=== PATIENT | female | born 1955 | race Caucasian/White ===

== ENCOUNTER 2017-06-04 07:24 | Inpatient (IN) | payer OTHER ==
--- NOTE | 2017-05-25 21:13 | HP ---
HISTORY AND PHYSICAL: DATE OF ADMISSION/SURGERY: 06/04/17 DATE OF OFFICE VISIT: 05/25/17 SURGEON: Soraya Dumont MD * (DICTATED BY HIEU MENCHACA) PROCEDURE: Right total hip arthroplasty. CHIEF COMPLAINT: Right hip pain. HISTORY OF PRESENT ILLNESS: Ms. Marie is a 62-year-old female with complaints of right hip pain secondary to end-stage osteoarthritis. She has failed conservative management and elected to proceed with a right total hip arthroplasty. PAST MEDICAL HISTORY: Sleep apnea. PAST SURGICAL HISTORY: Left hip resurfacing tibia. CURRENT MEDICATIONS: 1. Multivitamin. 2. Calcium and vitamin D. 3. Excedrin Migraine. 4. Riboflavin. ALLERGIES: None. FAMILY HISTORY: Diabetes, cancer, and hypertension. SOCIAL HISTORY: She is a 62-year-old female. She lives alone. She does not smoke, use drugs. Uses alcohol occasionally. REVIEW OF SYSTEMS: A complete 14-point review of systems was reviewed with the patient, was all negative and noncontributory. PHYSICAL EXAMINATION GENERAL: She is well-developed, well-nourished, in no acute distress. VITAL SIGNS: She stands 5 feet 2 inches tall, weighs 200 pounds. Her blood pressure 126/80, her heart rate 76. HEENT: Normocephalic, atraumatic. NECK: Supple. No palpable lymph nodes. PULMONARY: The lungs are clear to auscultation bilaterally. CARDIO: Regular rate and rhythm. Strong S1, S2. ABDOMEN: Soft, nontender, nondistended. NEUROLOGICAL: She is alert and oriented x3. Cranial nerves II through XII are intact. MUSCULOSKELETAL: Right lower extremity, the skin is intact. There are no open wounds or abrasions. She walks with an antalgic-type gait favoring her right hip. She has decreased internal and external rotation of her right hip. She has 2+ dorsalis pedis pulses, intact sensation. Her lower extremity muscle group strengths are intact at 5/5. ASSESSMENT AND PLAN: Ms. Marie is a 62-year-old female with end-stage osteoarthritis of the right hip. She has failed conservative management and elected to proceed with a right total hip arthroplasty, which is scheduled for 06/04/[address] Dumont discussed the risks and benefits of the surgery at today's visit and all of her questions were answered. She would prefer aspirin twice daily postoperatively for DVT prophylaxis. This and Colace were sent to her pharmacy. She will see Dr. Dumont back 2 weeks after the surgery. HIEU MENCHACA [id number]/[facility] #: [id number] [facility]
[~2017-06-04 07:24] MED LIST: Acetaminophen IV 1GM/100ML * 1,000 MG/100 ML VIAL IVPB ONE; Buffered Lidocaine 0.9% SYRIN* 5 ML/SYR SYRINGE INTRADERM ONE; Dexamethasone IV* 4 MG/ML 1 ML (4 MG) IV SLOW PU ONE; Famotidine IV* 10 MG/ML 2 ML (20 mg) IV ONE; Gabapentin CAP(*) 300 MG PO ONE
[2017-06-04] MEDS ORDERED: Famotidine IV* 10 MG/ML 2 ML (20 mg) ONE (07:25)
[2017-06-04] MEDS ORDERED: Dexamethasone IV* 4 MG/ML 1 ML (4 MG) ONE (07:25)
[2017-06-04] MEDS ORDERED: Gabapentin CAP(*) 300 MG ONE (07:26)
[2017-06-04] MEDS ORDERED: ceFAZolin 2 GM PREMIX (*) 2 GM/50 ML BAG IVPB ONE (07:26)
--- OUTSIDE RECORDS SUMMARY | 2017-06-04 07:28 | XMS REPORT ---
:1955 External Reference #:[id number] Author Organization [employer] [facility] [employer] Address [address] [address] Phone [phone] Care Team Providers Name Role Phone Emma Cuello MD Primary Care Physician Unavailable Payers Type Date Identification Numbers Payment Provider Subscriber Commercial Policy Number: [id number] [employer] Smitha Marie Group Number: [id number] [address] PayID: [id number] [place] [address] Problems Date Description Provider Status Onset: 12/26/2016 Localized, primary Soraya Dumont M.D. Active osteoarthritis Onset: 12/26/2016 Localized, primary Soraya Dumont M.D. Active osteoarthritis of the pelvic region and thigh Onset: 01/29/2017 Chronic intractable migraine Vitor Rodriguez M.D. 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 Cigarette Use Never Smoked Cigarettes ETOH Use Occasionally consumes alcohol Smoking Patient has never smoked Recreational Drug Use Denies Drug Use Daily Caffeine Does Not Consume Caffeine Exercise Type/Frequency Exercises regularly Exercise Type/Frequency Exercises at a health club 5 times a week Allergies, Adverse Reactions, Alerts Date Description Reaction Status Severity Comments 10/26/2006 NKDA active Medications Medication Date Status Form Strength Qnty SIG Indications Ordering Provider Aspirin 05/25/ Active Tablets 325mg 60tab take 1 by Soraya Chacon s mouth once Robina Dumont a day for four weeks Colace 05/25/ Active Capsules 100mg 90cap 1 tab by Soraya Chacon s mouth 2-3 Robina Dumont times a day as needed Riboflavin 01/29/ Active Capsules 100mg 120ca 4 by mouth G43.719 [place] [address] ps each day Robina Rodriguez Multi-Vitamin / Active Tablets 1 PO qd Luis, 0000 MD Kahlil Calcium / Active Tablets 600mg 1 PO bid Luis, 0000 MD Kahlil Excedrine / Active prn H/A Other [address] Naprox[address] / Active Tablets DR 500mg 1 po bid as Unknown 0000 needed for pain. 2 week regimen 04/08/17 Coumadin 05/25/ Hx Tablets 2mg 90tab take 1-3 Soraya Chacon - s tabs by Robina Dumont 05/25/ mouth at 5 2018 at night as directed Naprosyn 04/01/ Hx Tablets 500mg 60tab take 1 by Soraya Chacon - s mouth twice Robina Dumont 05/24/ a day as 2018 needed pain Percocet 03/31/ Hx Tablets 5-325mg 90tab 1-2 tabs by Soraya Chacon - s mouth q8 as Robina Dumont 05/24/ needed pain 2018 Medrol 10/14/ Hx Tablets 4mg follow Alcides Devries 2010 Toby swanson M.D. 2016 take with food Amoxicillin 02/28/ Hx Tablets 500mg 20tab 1 po bid 388.70 Mariusz Madsen 2008 - s for 10 days Robina Kramer 2016 Zoloft 10/18/ Hx Tablets 50mg 90tab 1 po qd Mariusz Madsen 2007 Toby Kramer M.D. 2008 Amoxicillin 02/18/ Hx Tablets 500mg 30tab 1 po tid Mariusz Kramer M.D. 2007 Zoloft 10/26/ Hx Tablets 25mg 30tab 1 po qd Mariusz Kramer M.D. 2007 Medications Administered in Office Medication Date Status Form Strength Qnty SIG Indications Ordering Provider Krishna Administered Injection Soraya 40MG Ana Dumont M.D. Vital Signs Date Vital Result Comment 05/25/2017 Height 62.5 inches 5'2.50" Weight 201.00 lb Heart Rate 76 /min BP Systolic 126 mmHg BP Diastolic 80 mmHg BMI (Body Mass Index) 36.2 kg/m2 04/10/2017 Height 62.5 inches 5'2.50" Weight 200.00 lb BP Systolic 134 mmHg BP Diastolic 72 mmHg Respiratory Rate 14 /min Pain Level 6 BMI (Body Mass Index) 36.0 kg/m2 04/08/2017 Height 62.5 inches 5'2.50" Weight 201.50 lb with boots Heart Rate 84 /min BP Systolic Sitting 130 mmHg Lue reg cuff BP Diastolic Sitting 84 mmHg Lue reg cuff Respiratory Rate 16 /min O2 % BldC Oximetry 95 % On Ra BMI (Body Mass Index) 36.3 kg/m2 04/06/2017 Height 62.5 inches 5'2.50" Weight 200.00 lb BP Systolic 132 mmHg BP Diastolic 84 mmHg Respiratory Rate 15 /min Pain Level 10 BMI (Body Mass Index) 36.0 kg/m2 03/30/2017 Height 62.5 inches 5'2.50" Weight 200.00 lb per pt Heart Rate 84 /min reg BP Systolic Sitting 110 mmHg Lue BP Diastolic Sitting 72 mmHg Lue Respiratory Rate 16 /min Pain Level 5 right hip/groin BMI (Body Mass Index) 36.0 kg/m2 01/30/2017 Height 62.5 inches 5'2.50" Weight 198.38 lb Heart Rate 90 /min BP Systolic Sitting 138 mmHg Lue reg cuff BP Diastolic Sitting 80 mmHg Lue reg cuff Respiratory Rate 16 /min O2 % BldC Oximetry 96 % On Ra BMI (Body Mass Index) 35.7 kg/m2 01/29/2017 Height 62.5 inches 5'2.50" Weight 198.00 lb Heart Rate 66 /min BP Systolic Sitting 122 mmHg BP Diastolic Sitting 78 mmHg Respiratory Rate 16 /min BMI (Body Mass Index) 35.6 kg/m2 01/12/2017 Height 62.5 inches 5'2.50" Weight 198.00 lb Heart Rate 64 /min BP Systolic Sitting 122 mmHg BP Diastolic Sitting 90 mmHg Respiratory Rate 14 /min O2 % BldC Oximetry 97 % BMI (Body Mass Index) 35.6 kg/m2 12/26/2016 Height 62.5 inches 5'2.50" Weight 195.00 lb Heart Rate 72 /min BP Systolic 120 mmHg BP Diastolic 72 mmHg Respiratory Rate 15 /min Body Temperature 97.7 F Pain Level 2 BMI (Body Mass Index) 35.1 kg/m2 10/14/2010 Height 63 inches 5'3" Weight 180.00 lb Heart Rate 68 /min BP Systolic 135 mmHg BP Diastolic 88 mmHg BMI (Body Mass Index) 31.9 kg/m2 08/05/2010 Weight 170.00 lb Heart Rate 74 /min BP Systolic Sitting 136 mmHg BP Diastolic Sitting 86 mmHg 02/28/2009 BP Systolic Sitting 120 mmHg BP Diastolic Sitting 90 mmHg Body Temperature 97.8 F 11/09/2008 Height 62.5 inches 5'2.50" Weight 168.00 lb Heart Rate 72 /min BP Systolic Sitting 116 mmHg BP Diastolic Sitting 80 mmHg BMI (Body Mass Index) 30.2 kg/m2 09/28/2007 Height 62.5 inches 5'2.50" Weight 169.00 lb Heart Rate 84 /min BP Systolic Sitting 116 mmHg BP Diastolic Sitting 80 mmHg BMI (Body Mass Index) 30.4 kg/m2 02/18/2007 Height 62.5 inches 5'2.50" Heart Rate 84 /min BP Systolic Sitting 116 mmHg BP Diastolic Sitting 78 mmHg Body Temperature 100.5 F 10/26/2006 Height 62.5 inches 5'2.50" Weight 183.00 lb Heart Rate 60 /min BP Systolic Sitting 122 mmHg BP Diastolic Sitting 86 mmHg BMI (Body Mass Index) 32.9 kg/m2 Results Test Date Test Result H/L Range Note CBC With Electronic Diff 09/29/2007 White Blood Count 5.3 CUMM 4.8-10.8 Red Cell Count 4.51 CUMM 4.2-5.4 Hemoglobin 13.6 g/dL 12.0-16.0 Hematocrit 41 % 35-47 Mean Corpuscular Volume 91 um3 79-97 Mean Corpuscular Hemoglob 30 pg 27-31 Mean Corpuscular HGB Cone 33 g/dL 32-36 Redcell Distribution WDTH 13 % 10.5-15 Platelet Count 295 CUMM 150-450 Mean Platelet Volume 8.4 um3 7.4-10.4 Gran % 53.4 % 38-83 Lymph % 34.4 % 20-45 Mononuclear % 10.7 % High 1-9 Eosinophil % 1.3 % 0-6 Basophil % 0.2 % 0-2 Abs Lymphs 1.8 1.0-4.8 Abs Mononuclear 0.6 0-0.8 Absolute Neutrophil Count 2.8 1.5-7.7 Abs Eosinophils 0.1 0-0.6 Abs Basophils 0 0-0.2 Comp Metabolic Panel 09/29/2007 Sodium 137 mmol/L 135-145 Potassium 4.3 mmol/L 3.5-5.0 Chloride 108 mmol/L 101-111 Co2 (Carbon Dioxide) 26.0 mmol/L 22-32 Anion Gap 3.0 mmol/L 2-11 1 Glucose 84 mg/dL 70-105 BUN 30 mg/dL High 6-24 Creatinine 1.0 mg/dL 0.5-1.4 One Over Creatinine 1.00 BUN/Creatinine Ratio 30.0 High 8-20 Calcium 9.2 mg/dL 8.1-9.9 2 Total Protein 6.9 GM/DL 6.2-8.1 Albumin 3.9 GM/DL 3.6-5.4 Globulin 3.0 GM/DL 2-4 Albumin/Globulin Ratio 1.3 1-3 Bilirubin Total 0.5 mg/dL 0.4-1.5 Alkaline Phosphatase 69 U/L 30-110 Alt (SGPT) 29 U/L 14-54 Ast (Sgot) 25 U/L 12-42 Lipid Profile (Trig/Chol/HDL) 09/29/2007 Triglyceride 155 mg/dL 40-200 Cholesterol 228 mg/dL High Less Than 200 3 High Density Lipoprotein 49 mg/dL 40-60 4 Cholesterol/HDL Ratio 4.65 AVERAGE High 1-4.44 Low Density Lipoprotein 148 mg/dL High Less Than 100 5 Laboratory test finding 09/29/2007 TSH 0.63 MIU/ML 0.34-5.60 LDL Direct 131 mg/dL High Less Than 100 6 1 Anion gap measurement may be of limited value in the presence of any alkalosis, especially in a combined acid base disorder. . 2 Please note change in reference range effective 07 . 3 CHOLESTEROL INTERPRETATION: Desirable: Less than 200 MG/DL Borderline-High Risk: 200-239 MG/DL High-Risk: 240 MG/DL and over 4 HDL INTERPRETATION: Undesirable: High Risk: Less than 40 MG/DL Desirable: Low Risk: Greater than 60 MG/DL 5 LDL INTERPRETATION: Low Risk Optimal Level: LDL Less than 100 MG/DL Near or Above Optimal: LDL 100-129 MG/DL Borderline High Risk: LDL 130-159 MG/DL High Risk: LDL 160-189 MG/DL Very High Risk: LDL Greater than 189 MG/DL 6 LDL INTERPRETATION: Low Risk Optimal Level: LDL Less than 100 MG/DL Near or Above Optimal: LDL 100-129 MG/DL Borderline High Risk: LDL 130-159 MG/DL High Risk: LDL 160-189 MG/DL Very High Risk: LDL Greater than 189 MG/DL Procedures Date CPT Code Description Status 04/10/2017 42906 Inject/Drain Joint/Bursa Major Completed 01/12/2017 01686 Sleep Study Unattended,HRT Rate,Oxygen Sat,Resp Completed Effort/Airflow 02/18/2011 58134 Xray Knee 3 Views Completed 02/18/2011 03214 Rad Exam; Knee, Ap&L Completed 06/23/2006 Colonoscopy Completed Encounters Type Date Location Provider CPT E/M Dx Office Visit 04/08/2017 [facility] Shara Perea 36779 G47.33 11:15a Services Of Barbara AGUSTIN RN, PASCUAL-PAOLA E66.09 Z68.36 Office Visit 04/06/2017 9:00a [facility] Soraya Dumont M.D. 51660 M25.562 [facility] M17.12 M21.062 M25.462 Office Visit 03/30/2017 10:00a [facility] Of Soraya Dumont M.D. 43021 M25.551 C.[facility]A. 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 37112 M25.561 C.[facility]. M17.11 M25.551 M16.11 Office Visit 03/07/2011 8:30a [facility] GABY Martinez 49735 717.9 Of C.[facility]. Office Visit 02/18/2011 1:00p [facility] GABY Martinez 72900 717.9 Of C.M.A. Office Visit 11/11/2010 9:00a [facility] Be Harper M.D. 16409 726.2 Of C.[facility]. Office Visit 10/14/2010 9:30a [facility] Be Harper M.D. 42924 726.2 Of C.M.A. Office Visit 08/05/2010 11:20a DO Not Use [facility], 89178 719.41 [facility] Visit 02/28/2009 1:45p DO Not Use [facility], 16393 465.9 [facility] 388.70 Office Visit 11/09/2008 1:30p [facility], 81546 784.0 [facility].D. Office Visit 09/28/2007 2:00p [facility], 69144 702.19 [facility].DKathy 272.2 Office Visit 02/18/2007 9:15a [facility], 66215 462 [facility].D. Office Visit 10/26/2006 2:30p [facility], 62215 307.81 [facility].D. Plan of Care Future Appointment(s):06/17/2017 10:30 am - Soraya Dumont M.D. at [facility]06/04/2017 9:30 am - Baljinder Mayo PA-C at [facility]06/04/2017 9:30 am - HIEU Terrazas at [facility]10/06/2017 2:00 pm - Shara Perea DNP, RN, HOGSHEAD PACKER- at [facility]06/04/2017 9:30 am - Soraya Dumont M.D. at [facility]05/25/2017 - Soraya Dumont M.D.M25.551 Pain in right hipFollow up:Follow up: 2 weeks after [id number] Unilateral primary osteoarthritis, right hip
--- OUTSIDE RECORDS SUMMARY | 2017-06-04 07:28 | XMS REPORT ---
:1955 External Reference #:[id number] Author Organization [employer] [facility] Address [address] [address] Phone [phone] Care Team Providers Name Role Phone Emma Cuello MD Primary Care Physician Unavailable Payers Type Date Identification Numbers Payment Provider Subscriber Commercial Policy Number: [id number] [employer] Smitha Marie Group Number: [id number] [address] PayID: [id number] [place] [address] Problems Date Description Provider Status Onset: 12/26/2016 Localized, primary Soraya Dumont M.D. Active osteoarthritis Onset: 12/26/2016 Localized, primary Soraya Dumont M.D. Active osteoarthritis of the pelvic region and thigh Onset: 01/29/2017 Chronic intractable migraine Vitor Rodriguez M.D. 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: 01/30/2017 Headache Shara Perea DNP, RN, Active RESIDENT SERVICES MANAGER-BC Family History Date Family Member(s) Problem(s) Comments [...] Form Strength Qnty SIG Indications Ordering Provider Naprosyn 04/01/ Active Tablets 500mg 60tab take 1 by Soraya 2017 s mouth twice Robina Dumont a day as needed pain Percocet 03/31/ Active Tablets 5-325mg 90tab 1-2 tabs by Soraya 2017 s mouth q8 as Robina Dumont needed pain Riboflavin 01/29/ Active Capsules 100mg 120ca 4 by mouth G43.719 [place] [address] ps each day Robina Rodriguez Multi-Vitamin / Active Tablets 1 PO qd Luis, 0000 MD Kahlil Calcium / Active Tablets 600mg 1 PO bid Luis, 0000 MD Kahlil Excedrine / Active prn H/A Other [address] / Active Tablets DR 500mg 1 po bid as Unknown 0000 needed for pain. 2 week regimen 04/08/17 Medrol 10/14/ Hx Tablets 4mg follow Alcides Devries 2010 - kiki Quarles 2016 take with food Amoxicillin 02/28/ Hx Tablets 500mg 20tab 1 po bid 388.70 Mariusz Luis s for 10 days Robina Kramer 2016 Zoloft 10/18/ Hx Tablets 50mg 90tab 1 po qd Mariusz Madsen 2007 Toby Kramer M.D. 2008 Amoxicillin 02/18/ Hx Tablets 500mg 30tab 1 po tid Mariusz Kramer M.D. 2007 Zoloft 10/26/ Hx Tablets 25mg 30tab 1 po qd Mariusz Kramer M.D. 2007 Medications Administered in Office Medication Date Status Form Strength Qnty SIG Indications Ordering Provider Depomedrol Administered Injection Soraya 40MG 018 Robina Dumont Vital Signs Date Vital Result Comment 04/10/2017 Height 62.5 inches 5'2.50" Weight 200.00 [...] Procedures Date CPT Code Description Status 04/10/2017 38911 Inject/Drain Joint/Bursa Major Completed 01/12/2017 47218 Sleep Study Unattended,HRT Rate,Oxygen Sat,Resp Completed Effort/Airflow 02/18/2011 95852 Xray Knee 3 Views Completed 02/18/2011 89182 Rad Exam; Knee, Ap&L Completed 06/23/2006 Colonoscopy Completed Encounters Type Date Location Provider CPT E/M Dx Office Visit 04/08/2017 Pulmonology And Sleep Shara Perea, 94272 G47.33 11:15a Services Of [facility] MARY JO AGUSTIN, VALENTIN E66.09 Z68.36 Office Visit 04/06/2017 9:00a [facility] Of Soraya Dumont M.D. 53272 M25.562 C.M.A. M17.12 M21.062 M25.462 Office Visit 03/30/2017 10:00a [facility] Soraya Dumont M.D. 31024 M25.551 C.M.A. M16.11 Office Visit 01/30/2017 9:15a [facility] Sleep Shara Perea 07757 G47.33 [facility] MARY JO AGUSTIN, RESIDENT SERVICES MANAGER-PAOLA R51 E66.09 Z68.35 Office Visit 01/29/2017 8[facility] 26097 G43.719 Services Of [facility] Quarles Office Visit 01/12/2017 11:00a [place] [address] R06.83 Sleep Services [facility] R51 R40.0 R35.1 G89.29 E66.09 Z68.35 Office Visit 12/26/2016 10:00a [facility] Soraya Dumont M.D. 16354 M25.561 C.M.A. M17.11 M25.551 M16.11 Office Visit 03/07/2011 8:30a [facility] Services GABY Martinez 65649 717.9 Of C.M.A. Office Visit 02/18/2011 1:00p [facility] GABY Martinez 64272 717.9 Of C.M.A. Office Visit 11/11/2010 9:00a [facility] Be Harper M.D. 59510 726.2 Of C.[facility]. Office Visit 10/14/2010 9:30a [facility] Be Harper M.D. 05812 726.2 Of C.M.A. Office Visit 08/05/2010 11:20a DO Not Use [facility], 56705 719.41 [facility] 719.46 Office Visit 02/28/2009 1:45p DO Not Use [facility], 84167 465.9 [facility] 388.70 Office Visit 11/09/2008 1:30p [facility], 40698 784.0 [facility]. Office Visit 09/28/2007 2:00p [facility], 51586 702.19 [facility]D 272.2 Office Visit 02/18/2007 9:15a [facility], 82969 462 [facility]. Office Visit 10/26/2006 2:30p [facility], 86746 307.81 [facility]. Plan of Care Future Appointment(s):06/04/2017 9:30 am - Baljinder Mayo PA-C at [facility]06/04/2017 9:30 am - HIEU Terrazas at [facility]10/06/2017 2:00 pm - Shara Perea DNP, RN, RESIDENT SERVICES MANAGER- at [facility] Services [facility]06/04/2017 9:30 am - Soraya Dumont M.D. at [facility]05/25/2017 9:30 am - Soraya Dumont M.D. at [facility]04/10/2017 - Soraya Dumont M.D.M25.562 Pain in left kneeFollow up:Follow up: As iyttbgA99.12 Unilateral primary osteoarthritis, left kneeM21.062 Valgus deformity, not elsewhere classified, left kneeM25.462 Effusion, left knee
[2017-06-04] MEDS ORDERED: Acetaminophen IV 1GM/100ML * 100 ML ONE (07:29)
[2017-06-04] MEDS ORDERED: celeCOXIB CAP* 200 MG PO ONE (08:43)
[2017-06-04] MEDS ORDERED: celeCOXIB CAP* 100 MG ONE ×2 (08:45→08:46)
[2017-06-04] MEDS ORDERED: Bupivacaine 0.5% SDV PF* 10-30ML VIAL ONE (08:51)
[2017-06-04] MEDS ORDERED: Propofol* 10 MG/ML 20 ML BTL IV PUSH ONE ×2 (08:59→09:01)
[2017-06-04] MEDS ORDERED: Ondansetron INJ* 2 MG/ML VIAL ONE ×2 (08:59→09:16)
[2017-06-04] MEDS ORDERED: Midazolam* 1 MG/ML 5 ML VIAL (5 MG) ONE (09:01)
[2017-06-04] MEDS ORDERED: fentaNYL* 50 MCG/ML 5 ML VIAL (250 MCG VIAL) ONE (09:01)
[2017-06-04] MEDS ORDERED: Ropivacaine (OR use only) 2 MG/ML 1 ML ONE (09:02)
[2017-06-04] MEDS ORDERED: Polyethylene Glycol 3350* 17 GM PACKET PO PRN (09:58)
[2017-06-04] MEDS ORDERED: oxyCODONE/Acetamin 5/325 MG* TAB PO PRN (09:58)
[2017-06-04] MEDS ORDERED: Bisacodyl SUPP* 10 MG SUPP PR PRN (09:58)
[2017-06-04] MEDS ORDERED: Ondansetron TAB* 4 MG PO PRN (09:58)
[2017-06-04] MEDS ORDERED: diPHENhydraMINE IV* 50 MG/ML 1 ml VIAL (BENADRYL) IV PRN (09:58)
[2017-06-04] MEDS ORDERED: Magnesium Hydroxide LIQ* 30 ML UDC PO PRN (09:58)
[2017-06-04] MEDS ORDERED: Morphine INJ* 2 MG/ML 1 ML CARPUJECT IV PRN (09:58)
[2017-06-04] MEDS ORDERED: Cyclobenzaprine TAB* 10 MG PO PRN (09:58)
[2017-06-04] MEDS ORDERED: oxyCODONE TAB* 5 MG TAB PO PRN (09:58)
[2017-06-04] MEDS ORDERED: Ondansetron INJ* 2 MG/ML VIAL IV PRN (09:58)
[2017-06-04] MEDS ORDERED: Scopolamine 1.5 mg* PATCH TRANSDERM PRN (11:09)
[2017-06-04] MEDS ORDERED: Naloxone* 0.4 MG/ML 1 ML VIAL IV PRN (11:09)
[2017-06-04] MEDS ORDERED: DiMENhydriNATE IV* 50 MG/ML VIAL IV PUSH PRN (11:09)
[2017-06-04] MEDS ORDERED: EPHEDrine (Pressors)* 50 MG/ML VIAL ONE (11:24)
[2017-06-04] MEDS ORDERED: Glycopyrrolate IV* 0.2 MG/ML 1 ML VIAL ONE (11:24)
[2017-06-04] MEDS ORDERED: fentaNYL* 50 MCG/ML 2 ML VIAL (100 MCG VIAL) ONE (13:16)
[2017-06-04] MEDS ORDERED: HYDROmorphone INJ* 2 MG/ML CARPUJECT SYRINGE ONE (13:16)
[2017-06-04] MEDS: fentaNYL* 50 MCG/ML 2 ML VIAL (100 MCG VIAL) IV PRN ×2 (13:18→13:37)
[2017-06-04] MEDS: HYDROmorphone INJ* 1 MG/ML CARPUJECT SYRINGE IV PRN ×2 (13:19→13:38)
--- NOTE | 2017-06-04 14:27 | RAD ---
INDICATION: Status post total right hip replacement surgery. TECHNIQUE: An AP view of the pelvis was obtained. FINDINGS: The patient is undergoing a total right hip replacement surgery. There is a acetabular prostheses in place. There is a femoral template in place. The bones and prostheses are in normal alignment. IMPRESSION: INTRAOPERATIVE CONTROL FILMS.
--- NOTE | 2017-06-04 14:58 | RAD ---
HISTORY: Status post right hip arthroplasty COMPARISONS: December 26, 2016 VIEWS: 3, Frontal view of the pelvis with frontal and crosstable lateral views of the right hip FINDINGS: BONE DENSITY: Normal. BONES: The patient is status post left hip hemiarthroplasty. There has been interval right total hip arthroplasty. On the right, there is no hardware failure or osteolysis. JOINTS: The patient is status post bilateral hip arthroplasty. ALIGNMENT: There is no dislocation. SOFT TISSUES: Unremarkable. OTHER FINDINGS: None. IMPRESSION: STATUS POST BILATERAL HIP ARTHROPLASTY.
[2017-06-04] MEDS ORDERED: Warfarin TAB(*) 6 MG PO ONE (17:00)
[2017-06-04] MEDS: ceFAZolin 1 GM in Dextrose (*) 1 GM/50 ML BAG IVPB SCH (17:34)
[2017-06-04] MEDS: oxyCODONE/Acetamin 5/325 MG* TAB PO PRN (18:43)
[2017-06-04] MEDS: Docusate CAP* 100 MG PO SCH (19:22)
[2017-06-04] MEDS: Magnesium Hydroxide LIQ* 30 ML UDC PO SCH (19:32)
[2017-06-04] MEDS: Acetaminophen TAB* 325 MG PO PRN (22:45)
[2017-06-05] MEDS: ceFAZolin 1 GM in Dextrose (*) 1 GM/50 ML BAG IVPB SCH ×2 (01:14→10:25)
[2017-06-05 05:55] LABS: Hematocrit 34 % (35-47); Hemoglobin 11.5 g/dl (12.0-16.0); Mean Platelet Volume 7.6 um3 (7.4-10.4); Platelet Count 249 10^3/ul (150-450)
[2017-06-05 05:57] LABS: INR 0.9 (0.77-1.02)
[2017-06-05] MEDS: oxyCODONE/Acetamin 5/325 MG* TAB PO PRN ×3 (06:06→22:22)
[2017-06-05 06:13] LABS: EGFR Non-African American 68.3 (>60)
[2017-06-05] MEDS: Docusate CAP* 100 MG PO SCH ×2 (09:02→21:10)
[2017-06-05] MEDS: Magnesium Hydroxide LIQ* 30 ML UDC PO SCH ×2 (09:02→21:10)
[2017-06-05] MEDS: Enoxaparin(*) 30 MG/0.3 ML SYR SUBCUT SCH (12:37)
--- NOTE | 2017-06-05 14:03 | OP ---
OPERATIVE REPORT: DATE OF OPERATION: 06/04/17 DATE OF : 51 SURGEON: Soraya Dumont MD EAP CLINICIAN: HIEU Reid Ms. did help throughout the procedure with preparation of the leg, wound retraction, manipul ation of the hip, and wound closure. ANESTHESIOLOGIST: Dr. Jean. ANESTHESIA: General. PRE-OP DIAGNOSIS: Severe end-stage degenerative osteoarthritis of the right hip joint. POST-OP DIAGNOSIS: Severe end-stage degenerative osteoarthritis of the right hip joint. OPERATIVE PROCEDURE: Right total hip arthroplasty. COMPLICATIONS: None. ESTIMATED BLOOD LOSS: 300 cc. SPECIMEN: Femoral head and acetabular reaming sent to Pathology. HARDWARE USED: This is [place] uncemented total hip arthroplasty hardware with cup of Tritanium 48C hemispherical cluster hole shell, a single 20 mm cancellous bone screw. For the stem, a size 2, 127- degree neck Accolade TMZF. For the insert, a Trident X3 0 degree polyethylene insert 32C. For the h ead, a Biolox delta ceramic V40 femoral head 32 +4. BRIEF HISTORY/INDICATION: Ms. Marie is a 62-year-old female with years of increasingly severe right hip pain. Radiographs showed [id number] arthritis. The patient failed conservative treatment with antiinflammatories, pain medications, and physical therapy. She elected to undergo right total hip a rthroplasty due to continued pain and decreased quality of life. Informed consent was obtained from the patient. She understood the risks of surgery included, but were not limited to bleeding, infecti on, damage to nearby structures, continued pain, need for further surgery, intraoperative fracture, n erve palsy, hardware failure or loosening, leg length discrepancy, dislocation, stroke, heart attack, blood clot, and . She wished to proceed. INTRAOPERATIVE FINDINGS: Intraoperatively, the patient was noted to have severe end-stage arthritis. She has complete loss of cartilage along the femoral head and acetabulum with significant osteophyt e formation along the anterior and inferior acetabular rim. She was noted preoperatively to have 1.5 cm of shortening on that side. DESCRIPTION OF PROCEDURE: Ms. Marie was identified in the preanesthesia unit. Her right lower extre mity was marked as the correct operative side. Informed consent was signed and placed in the chart. The patient was taken to the operating room and placed under general anesthesia. A Heart catheter w as placed. The patient was placed in the left lateral decubitus position on the peg board. All bony prominences were well padded. The right lower extremity was prepped and draped in the usual sterile fashion. Preop time-out was made to correctly identify the patient, side, and site. Appropriate pe rioperative antibiotics were given within 1 hour of incision. A 12 cm incision was made with a 10-blade and carried through the skin. Electrocautery was used to di ssect through to the subcutaneous fat layer. A new 10 blade was used to make an incision in the late ral fascia in line with the skin incision. A Charnley retractor was placed. The piriformis and conj oint tendons were identified. This was elevated off the posterolateral femur and tagged with #5 Ethi florence. Next, electrocautery was used to make a standard posterolateral capsular flap and this was als o tagged with #5 Ethibond. The hip was carefully dislocated. The lesser troch to center of femoral h ead measured 55 mm. Oscillating saw was used to make the appropriate femoral neck cut. Femoral head was removed. The femur was carefully retracted anteriorly. After appropriate placement of retractors, the acetabu lum was easily visualized. A long-handled knife was used to sharply remove any remaining labrum from the acetabular rim. The acetabulum was sequentially reamed up to a size 47. A bleeding subchondral bone bed was obtained. A 47 trial had good fit. Component chosen was a Tritanium hemispherical clus ter hole shell 48C. This was impacted into the acetabulum without difficulty. The cup had excellent stability. Anteversion and abduction angle were deemed to be appropriate. A single 20 mm screw was placed in the superior posterior quadrant for extra stability. Trident 0-degree polyethylene liner 32C was chosen as the appropriate liner. This was impacted into the acetabular cup without difficult y. Stability of the liner was checked and rechecked and noted to be stable. Osteotome and mallet wer e used to remove osteophytes from the inferior and anterior rim of the acetabulum. These bone fragme nts were carefully removed. Attention was turned next to preparation of the proximal femur. A canal finder was used to enter the proximal femur. The proximal femur was sequentially broached up to a size 2. Size 2 broach had goo d fit and appropriate anteversion. A 127 neck trial and a 32+ femoral head trial was chosen. The lesser troch to center of the femoral head measured 54 mm. Due to the preop leg length discrepancy, a +4 head was chosen. Lesser troch to center of the femoral head measured 58 mm. The hip was carefully dislocated. All trials were remov ed. Final implant chosen was an Accolade TMZF size 2 with a 127-degree neck. A Biolox delta ceramic V40 femoral head 32 +4 was chosen. This was impacted onto the femoral neck. The hip was reduced an d taken through a range of motion. The hip was stable in all positions with good leg lengths and andrea ropriate soft tissue tension. The hip was copiously irrigated with sterile saline. The previously t agged tendons were reapproximated to the posterolateral femur through 2 trochanteric drill holes. The lateral fascial layer was closed using interrupted #1 Vicryls. The rest of the incision was closed in a layered fashion using 0 and 2-0 Vicryls. Skin was closed using running 3-0 Monocryl with Dermab ond. Sterile Adaptic, 4x4s, and paper tape were used to cover the incision. The patient's anesthesi a was reversed without difficulty. She was taken to the PACU in stable condition. Intended weightbe aring will be weightbearing as tolerated with posterior hip precautions. Intended DVT prophylaxis wi ll be Coumadin with a Lovenox bridge. [id number]/[facility] #: [id number]
--- NOTE | 2017-06-05 15:30 | PN ---
Progress Note - Progress Note Date of Service: 06/05/17 SOAP: Subjective: 62 y/o female s/p R JAYLAN by Dr. Dumont 06/04. Patient feeling well, using pain mediation sparingly. no questions re: surgery. VSS, afebrile overnight. Objective: General- Well appearing, NAD, AO sitting in slava.r comfortably MSK- R LE- + DF/PF, PT 2+, negative homans sign SITLT surigcal dressing intact , no drainage noted, no induration. Vital Signs Temp 98.1 F 06/05/17 11:22 Pulse 68 06/05/17 11:22 Resp 18 06/05/17 12:42 BP 119/56 06/05/17 11:22 Pulse Ox 99 06/05/17 11:22 Intake & Output 06/04/17 06/05/17 06/05/17 18:59 06:59 18:59 Intake Total 2400 1230 1190 Output Total 700 2125 500 Balance 1700 -895 690 Weight 198.4 kg Intake: IV Fluids 2400 980 LR 980 lr 2400 IVPB 50 ABX - CEFAZOLIN 50 Oral 200 1190 Output: Urine 500 Heart 450 2125 Estimated Blood Loss 250 Other: # Bowel Movements 0 Assessment: Stable 62 y/o female s/p R JAYLAN by Dr. Dumont 06/04 Plan: - DVT prophylaxis- lovenox, coumadin 6mg tonight. - Continue PT/ OT - Follow up with Dr. Dumont within 10-14 days - H&H - stable - post-op IV ABX - completed. Acetaminophen (Tylenol Tab*) 650 mg PO Q4H PRN PRN Reason: PAIN OR TEMPERATURE Last Admin: 06/04/17 22:45 Dose: 650 mg Bisacodyl (Dulcolax Supp*) 10 mg VA DAILY PRN PRN Reason: constipation Cyclobenzaprine HCl (Flexeril Tab*) 10 mg PO TID PRN PRN Reason: SPASMS Diphenhydramine HCl (Benadryl Iv*) 12.5 mg IV Q6H PRN PRN Reason: PRURITIS Docusate Sodium (Colace Cap*) 100 mg PO BID LC Last Admin: 06/05/17 09:02 Dose: 100 mg Enoxaparin Sodium (Lovenox(*)) 30 mg SUBCUT Q24H [facility] Last Admin: 06/05/17 12:37 Dose: 30 mg Lactated Ringer's (Lactated Ringers 1000 Ml Bag*) 1,000 mls @ 100 mls/hr IV PER RATE [facility] Last Admin: 06/05/17 01:14 Dose: 100 mls/hr Lactulose (Lactulose*) 30 ml PO Q6H PRN PRN Reason: constipation Magnesium Hydroxide (Milk Of Magnesia Liq*) 30 ml PO BID [facility] Last Admin: 06/05/17 09:02 Dose: 30 ml Magnesium Hydroxide (Milk Of Magnesia Liq*) 30 ml PO Q6H PRN PRN Reason: constipation Morphine Sulfate (Morphine Inj (Syringe)*) 2 mg IV Q2H PRN PRN Reason: PAIN Ondansetron HCl (Zofran Inj*) 4 mg IV Q6H PRN PRN Reason: nausea Ondansetron HCl (Zofran Tab*) 4 mg PO Q6H PRN PRN Reason: NAUSEA Oxycodone HCl (Roxycodone Tab*) 10 mg PO Q4H PRN PRN Reason: SEVERE PAIN Last Admin: 06/05/17 09:02 Dose: 5 mg Oxycodone/Acetaminophen (Percocet 5/325 Tab*) 2 tab PO Q4H PRN PRN Reason: PAIN Oxycodone/Acetaminophen (Percocet 5/325 Tab*) 1 tab PO Q4H PRN PRN Reason: PAIN Last Admin: 06/05/17 12:42 Dose: 1 tab Polyethylene Glycol/Electrolytes (Miralax*) 17 gm PO DAILY PRN PRN Reason: Constipation Warfarin Sodium (Coumadin Tab(*)) 6 mg PO ONCE@1700 [facility] PRN Reason: Protocol Stop: 06/05/17 17:01
[2017-06-05] MEDS ORDERED: Warfarin TAB(*) 6 MG PO ONE (17:00)
[2017-06-05] MEDS: Acetaminophen TAB* 325 MG PO PRN (18:26)
[2017-06-06] MEDS: oxyCODONE/Acetamin 5/325 MG* TAB PO PRN ×2 (05:34→10:22)
[2017-06-06 05:36] LABS: INR 0.94 (0.77-1.02)
[2017-06-06] MEDS: Acetaminophen TAB* 325 MG PO PRN (05:39)
[2017-06-06 05:46] LABS: Hematocrit 33 % (35-47); Hemoglobin 11.1 g/dl (12.0-16.0); Mean Platelet Volume 7.9 um3 (7.4-10.4); Platelet Count 246 10^3/ul (150-450)
--- NOTE | 2017-06-06 08:28 | PN ---
Progress Note - Progress Note Date of Service: 06/06/17 SOAP: Subjective: Pt. is alert, nad. Objective: RLE - dressing c/d/i. distally nvi. Vital Signs: Temp Pulse Resp BP Pulse Ox 98.8 F 76 16 110/52 91 06/06/17 03:54 06/06/17 03:54 06/06/17 05:34 06/06/17 03:54 06/06/17 03:54 Laboratory Results - last 24 hr 06/06/17 06/06/17 04:48 04:48 Hgb 11.1 L Hct 33 L Plt Count 246 MPV 7.9 INR (Anticoag Therapy) 0.94 Assessment: 62 yo F pod 2 s/p RTHA Plan: wbat rle with post hip precautions pt/ot home on ecasa 325 mg bid lovenox today d/c to home today with vns
[2017-06-06] MEDS: Docusate CAP* 100 MG PO SCH (08:33)
[2017-06-06] MEDS: Magnesium Hydroxide LIQ* 30 ML UDC PO SCH (08:33)
[2017-06-06] MEDS: Enoxaparin(*) 30 MG/0.3 ML SYR SUBCUT SCH (11:33)
[2017-06-06 12:00] VITALS: BP 110/52
--- NOTE | 2017-06-08 23:43 | DS ---
DISCHARGE SUMMARY: DATE OF ADMISSION: 06/04/17 DATE OF DISCHARGE: 06/06/17 PROVIDER: Soraya Dumont MD * (DICTATED BY HIEU BLUE) ADMITTING DIAGNOSIS: Right hip osteoarthritis. CONSULTATIONS: Physical Therapy, Occupational Therapy. HISTORY OF PRESENT ILLNESS: Ms. Marie is a 62-year-old female who complained of right hip pain secondary to end-stage osteoarthritis. He failed conservative management and elected to proceed with a right total hip arthroplasty, which was performed on 06/04/17. HOSPITAL COURSE: The patient was admitted to [facility] on 06/04/17 and underwent a right total hip arthroplasty with no complications. The patient recovered briefly in the postanesthesia care unit and was then transferred to the short stay surgical unit in stable condition. On postop day #1, the patient's H and H was 11.5 and 39, INR was 0.90 after 6 mg of Coumadin the night before. Dressing was dry and intact. Right lower extremity was neurovascularly intact. She demonstrated dorsiflexion and plantar flexion with good strength. The patient was able to get out of bed with physical therapy. Pain was controlled with oral pain medication. On postoperative day #2, the urinary catheter was discontinued and the patient was able to void without difficulty. Incision was found to be benign with minimal drainage, no erythema or warmth. Patient's H and H was 11.1 and 33, INR was 0.94 after again 6 mg of Coumadin the night before. The patient's pain was well controlled and found to be stable for discharge. Throughout the hospital course, vital signs remained stable and the patient was afebrile. DISCHARGE CONDITION: Good. DISCHARGE MEDICATIONS: 1. Percocet 5/325. 2. Colace 100 mg. 3. Aspirin 325. Home Medications: 1. Multivitamin. 2. Calcium and vitamin D3. 3. Excedrin Migraine. 4. Riboflavin. DISCHARGE INSTRUCTIONS: 1. Weightbearing as tolerated. 2. Wound care: Okay to shower on postoperative day #3, no bathing, swimming, or submerging the wound. Use gentle soap, pat dry. Cover with gauze, David wrap , or tape. Call the orthopedic office for increased drainage, redness, increased pain or fever. Go to the ER with shortness of breath or chest pain. 3. Diet: Regular diet. Increase fluids and fiber to prevent constipation. Continue to use stool softeners, call office if no bowel motion within 48 hours. 4. Hip replacement: Continue hip precautions. Do not cross legs or bend greater than 90 degrees or squat. 5. Continue physical therapy and occupational therapy exercises as shown. 6. Visiting home nurses to do wound check. 7. Visiting home nurses to draw blood work for INR on Mondays and . 8. Anticoagulation: Aspirin 325 to be taken daily. 9. Pain control with Percocet 5/325 mg 1 to 2 tablets by mouth every 4 to 6 hours as needed for pain. Maximum of 10 tablets per day. Please note that Percocet contains Tylenol, which has a maximum daily dose of 4000 mg from all sources. 10. Antibiotics required prior to any dental work. 11. Follow up with Dr. Soraya Dumont in 10 to 14 days, call for an appointment. HIEU BLUE [id number]/[facility] #: [id number] [facility]yson
== END 2017-06-06 13:40 | disposition home health service (06) | DRG 470 ==
LOC: AA 07:24 → SSU 15:08
PROVIDERS: ADMIT Orthopaedic Surgery Adult Reconstructive Orthopaedic Surgery; ATTEND Orthopaedic Surgery Adult Reconstructive Orthopaedic Surgery
PROC: 0SR904A Replacement of Right Hip Joint with Ceramic on Polyethylene Synthetic Substitute, Uncemented, Open Approach (ICD-10-PCS; principal; 2017-06-04 10:00)
DX: M16.11 Unilateral primary osteoarthritis, right hip (principal); E66.9 Obesity, unspecified; G43.909 Migraine, unspecified, not intractable, without status migrainosus; G47.33 Obstructive sleep apnea (adult) (pediatric); R03.0 Elevated blood-pressure reading, without diagnosis of hypertension; M25.751 Osteophyte, right hip; Z83.3 Family history of diabetes mellitus; Z82.49 Family history of ischemic heart disease and other diseases of the circulatory system; Z72.89 Other problems related to lifestyle; Z68.35 Body mass index [BMI] 35.0-35.9, adult; Z82.0 Family history of epilepsy and other diseases of the nervous system; Z80.1 Family history of malignant neoplasm of trachea, bronchus and lung; Z80.3 Family history of malignant neoplasm of breast; Z80.51 Family history of malignant neoplasm of kidney
CPT/HCPCS: 36415; 72170; 80048; 85014; 85018; 85049; 85610; 88304; 88311; A9270-GY; C1713; C1776; J0690; J1100; J1170; J1650; J2250; J2405; J2704; J2795; J3010

== ENCOUNTER 2017-09-10 07:30 | Inpatient (IN) | payer OTHER ==
--- NOTE | 2017-09-02 21:02 | HP ---
HISTORY AND PHYSICAL: DATE OF ADMISSION/SURGERY: 09/10/17 DATE OF OFFICE VISIT: 08/31/17 SURGEON: Soraya Dumont MD * (DICTATED BY HIEU MENCHACA) PROCEDURE: Left total knee arthroplasty. CHIEF COMPLAINT: Left knee pain. HISTORY OF PRESENT ILLNESS: Ms. Marie is a 62-year-old female with continued complaints of left knee pain. She has failed conservative management and elected to proceed with a left total knee arthroplasty, which is scheduled for 09/10/[address] Dumont. PAST MEDICAL HISTORY: Sleep apnea. PAST SURGICAL HISTORY: Right total hip arthroplasty; left hip resurfacing; tibial chilo, right lower extremity. CURRENT MEDICATIONS: 1. Riboflavin. 2. Multivitamin. 3. Excedrin. 4. Calcium. ALLERGIES: No known drug allergies. FAMILY HISTORY: Denies. SOCIAL HISTORY: She is a 62-year-old female. She does not smoke or use drugs. REVIEW OF SYSTEMS: A complete 14-point review of systems was reviewed with the patient; it is all negative or noncontributory. She denies history of DVT, PE, hepatitis, HIV, or anesthesia problems. PHYSICAL EXAMINATION GENERAL: She is well developed, well nourished, in no acute distress. VITAL SIGNS: She stands 5 feet 2 inches tall, weighs 202 pounds. Her blood pressure is 118/70 and heart rate is 82. HEENT: Normocephalic, atraumatic. NECK: Supple. No palpable lymph nodes. PULMONARY: The lungs are clear to auscultation bilaterally. CARDIO: Regular rate and rhythm. Strong S1, S2. ABDOMEN: Soft, nontender, nondistended. NEUROLOGICAL: She is alert and oriented x3. Cranial nerves II through XII are intact. MUSCULOSKELETAL: Left lower extremity, the skin is intact. There are no open wounds or abrasions. She walks with an antalgic-type gait. She has a moderate left knee joint effusion, some tenderness over the medial and lateral joint line. No varus or valgus instability. 2+ dorsalis pedis pulses, intact sensation, her lower extremity muscle group strengths are intact at 5/5. ASSESSMENT AND PLAN: Ms. Marie is a 62-year-old female with complaints of left knee pain. She has failed conservative management and elected to proceed with a left total knee arthroplasty, which is scheduled for 09/10/[address] Dumont discussed the risks and benefits of the surgery at today's visit and all of her questions were answered. She will follow up with Dr. Dumont 2 weeks after the surgery. HIEU MENCHACA [id number]/[facility] #: [id number] [place]
[~2017-09-10 07:30] MED LIST changes: -Acetaminophen IV 1GM/100ML * 1,000 MG/100 ML VIAL IVPB ONE; -Dexamethasone IV* 4 MG/ML 1 ML (4 MG) IV SLOW PU ONE; -Famotidine IV* 10 MG/ML 2 ML (20 mg) IV ONE; -Gabapentin CAP(*) 300 MG PO ONE; +Sodium Citrate/Citric Acid* 15 ML UDC PO ONE
--- OUTSIDE RECORDS SUMMARY | 2017-09-10 08:45 | XMS REPORT ---
:1955 External Reference #:[id number] Author Organization [employer] Address [address] [place] [address] [place] [address] Phone [phone] Care Team Providers Name Role Phone Emma Cuello MD Primary Care Physician Unavailable Payers Type Date Identification Numbers Payment Provider Subscriber Commercial Policy Number: [id number] [employer] Smitha Marie Group Number: [id number] [address] PayID: [id number] [place] [address] Problems Date Description Provider Status Onset: 12/26/2016 Localized, primary Soraya Dumont M.D. Active osteoarthritis Onset: 12/26/2016 Localized, primary Soraya Dumont M.D. Active osteoarthritis of the pelvic region and thigh Onset: 01/29/2017 Chronic intractable migraine Vitor Rodriguez M.D. 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 Family History Date Family Member(s) Problem(s) Comments [...] Form Strength Qnty SIG Indications Ordering Provider Percocet 08/31/ Active Tablets 5-325mg 90tab 1-2 by Soraya 2017 s mouth every Robina Dumont 4-6 hours as needed pain Riboflavin 01/29/ Active Capsules 100mg 120ca 4 by mouth G43.719 [place] [address] ps each day Robina Rodriguez Multi-Vitamin / Active Tablets 1 PO qd Barken, 0000 MD Kahlil Excedrine / Active prn H/A Other 0000 Physician Practices Calcium / Active Unknown 0000 Percocet 06/06/ Hx Tablets 5-325mg 60tab 1 - 2 tabs Soraya 2017 - s by mouth Robina Dumont 07/14/ every 4 - 6 2018 hours as needed for pain. Coumadin 05/25/ Hx Tablets 2mg 90tab take 1-3 Soraya 2018 - s tabs by Robina Dumont 05/25/ mouth at 5 2018 at night as directed Aspirin 05/25/ Hx Tablets 325mg 60tab take 1 by Soraya 2018 - s mouth twice Robina Dumont 07/14/ a day for 2018 four weeks Colace 05/25/ Hx Capsules 100mg 90cap 1 tab by Soraya 2018 - s mouth 2-3 Robina Dumont 07/14/ times a day 2018 as needed Naprosyn 04/01/ Hx Tablets 500mg 60tab take 1 by Soraya 2018 - s mouth twice Robina Dumont 05/24/ a day as 2018 needed pain Percocet 03/31/ Hx Tablets 5-325mg 90tab 1-2 tabs by Soraya 2018 - s mouth q8 as Robina Dumont 05/24/ needed pain 2018 Medrol 10/14/ Hx Tablets 4mg follow Alcides Devries 2010 Toby swanson M.D. 2017 take with food Amoxicillin 02/28/ Hx Tablets 500mg 20tab 1 po bid 388.70 Mariusz Madsen 2008 - s for 10 days Robina Kramer 2016 Zoloft 10/18/ Hx Tablets 50mg 90tab 1 po qd Mariusz Kramer M.D. 2008 Amoxicillin 02/18/ Hx Tablets 500mg 30tab 1 po tid Mariusz Kramer M.D. 2007 Zoloft 10/26/ Hx Tablets 25mg 30tab 1 po qd Mariusz Kramer M.D. 2007 Calcium / Hx Tablets 600mg 1 PO bid Mickie Smith - MD Kahlil [address] / Hx Tablets DR 500mg 1 po bid as Unknown 0000 - needed for . 2 2018 week regimen 04/08/17 Medications Administered in Office Medication Date Status Form Strength Qnty SIG Indications Ordering Provider Depomedrol Administered Injection Soraya 40MG Ana Dumont M.D. Vital Signs Date Vital Result Comment 08/31/2017 Height 62.5 inches 5'2.50" Weight 202.00 lb Heart Rate 82 /min BP Systolic Sitting 118 mmHg BP Diastolic Sitting 78 mmHg Respiratory Rate 16 /min Body Temperature 97.7 F Pain Level 0 BMI (Body Mass Index) 36.4 kg/m2 07/15/2017 Height 63 inches 5'3" Weight 200.00 lb BP Systolic 124 mmHg BP Diastolic 86 mmHg Body Temperature 98.2 F Pain Level 1 BMI (Body Mass Index) 35.4 kg/m2 06/17/2017 Height 62.5 inches 5'2.50" Weight 201.00 lb Heart Rate 101 /min Respiratory Rate 16 /min Body Temperature 98.9 F Pain Level 5 BMI (Body Mass Index) 36.2 kg/m2 05/25/2017 Height 62.5 inches 5'2.50" Weight 201.00 [...] Test Date Test Result H/L Range Note Inr/Protime 08/31/2017 Inr 0.83 0.77-1.02 Laboratory test finding 08/31/2017 Partial Thrombo 30.2 seconds 26.0- 36.3 Time PTT CBC Auto Diff 08/31/2017 White Blood Count 6.6 10^3/uL 3.5-10.8 Red Blood Count 4.83 10^6/uL 4.00-5.40 Hemoglobin 14.7 g/dL 12.0-16.0 Hematocrit 45 % 35-47 Mean Corpuscular Volume 92 fL 80-97 Mean Corpuscular Hemoglobin 31 pg 27-31 Mean Corpuscular HGB Conc 33 g/dL 31-36 Red Cell Distribution Width 13 % 10.5-15 Platelet Count 306 10^3/uL 150-450 Mean Platelet Volume 7.8 um3 7.4-10.4 Abs Neutrophils 3.8 10^3/uL 1.5-7.7 Abs Lymphocytes 1.9 10^3/uL 1.0-4.8 Abs Monocytes 0.8 10^3/uL 0-0.8 Abs Eosinophils 0.1 10^3/uL 0-0.6 Abs Basophils 0 10^3/uL 0-0.2 Abs Nucleated RBC 0 10^3/uL Granulocyte % 57.3 % 38-83 Lymphocyte % 28.4 % 25-47 Monocyte % 12.6 % High 0-7 Eosinophil % 1.3 % 0-6 Basophil % 0.4 % 0-2 Nucleated Red Blood Cells % 0 Comp Metabolic Panel 08/31/2017 Sodium 139 mmol/L 135-145 Potassium 4.4 mmol/L 3.5-5.0 Chloride 105 mmol/L 101-111 Co2 Carbon Dioxide 27 mmol/L 22-32 Anion Gap 7 mmol/L 2-11 Glucose 87 mg/dL 70-100 Blood Urea Nitrogen 28 mg/dL High 6-24 Creatinine 0.86 mg/dL 0.51-0.95 BUN/Creatinine Ratio 32.6 High 8-20 Calcium 9.7 mg/dL 8.6-10.3 Total Protein 7.1 g/dL 6.4-8.9 Albumin 4.3 g/dL 3.2-5.2 Globulin 2.8 g/dL 2-4 Albumin/Globulin Ratio 1.5 1-3 Total Bilirubin 0.30 mg/dL 0.2-1.0 Alkaline Phosphatase 101 U/L 34-104 Alt 32 U/L 7-52 Ast 24 U/L 13-39 Egfr Non- 66.4 >60 Egfr 85.4 >60 1 Urinalysis Profile 08/31/2017 Urine Color Suzanna Urine Appearance Cloudy Urine Specific [place] 1.024 1.010-1.030 Urine pH 5.0 5-9 Urine Urobilinogen Negative Negative Urine Ketones Negative Negative Urine Protein Negative Negative Urine Leukocytes 1+ Negative Urine Blood Negative Negative * * Negative 2 Urine Nitrite Negative Negative Urine Bilirubin Negative Negative Urine Glucose Negative Negative Urine White Blood Cell Trace(0-5/hpf) Absent Urine Red Blood Cell 2+(6-10/hpf) Absent Urine Bacteria Absent Absent Urine Squamous Epithelial Cell Present Absent Type & Screen 08/31/2017 Patient Blood Type O Positive Antibody Screen NEGATIVE Laboratory test finding 08/31/2017 Hemoglobin A1c 5.7 % High 4.0-5.6 3 (Glyco HGB) Urine Culture And 05/25/2017 Urine Culture SEE RESULT BELOW 4 Sensitivities Type & Screen 05/25/2017 Patient Blood Type O Positive Antibody Screen NEGATIVE CBC Auto Diff 05/25/2017 White Blood Count 7.4 10^3/uL 3.5-10.8 Red Blood Count 4.78 10^6/uL 4.0-5.4 Hemoglobin 14.7 g/dL 12.0-16.0 Hematocrit 45 % 35-47 Mean Corpuscular Volume 93 fL 80-97 Mean Corpuscular Hemoglobin 31 pg 27-31 Mean Corpuscular HGB Conc 33 g/dL 31-36 Red Cell Distribution Width 13 % 10.5-15 Platelet Count 292 10^3/uL 150-450 Mean Platelet Volume 8 um3 7.4-10.4 Abs Neutrophils 4.0 10^3/uL 1.5-7.7 Abs Lymphocytes 2.3 10^3/uL 1.0-4.8 Abs Monocytes 0.9 10^3/uL High 0-0.8 Abs Eosinophils 0.1 10^3/uL 0-0.6 Abs Basophils 0.1 10^3/uL 0-0.2 Abs Nucleated RBC 0 10^3/uL Granulocyte % 54.0 % 38-83 Lymphocyte % 31.1 % 25-47 Monocyte % 12.5 % High 0-7 Eosinophil % 1.7 % 0-6 Basophil % 0.7 % 0-2 Nucleated Red Blood Cells % 0.1 Comp Metabolic Panel 05/25/2017 Sodium 136 mmol/L 133-145 Potassium 4.2 mmol/L 3.5-5.0 Chloride 102 mmol/L 101-111 Co2 Carbon Dioxide 29 mmol/L 22-32 Anion Gap 5 mmol/L 2-11 Glucose 82 mg/dL 70-100 Blood Urea Nitrogen 26 mg/dL High 6-24 Creatinine 0.80 mg/dL 0.51-0.95 BUN/Creatinine Ratio 32.5 High 8-20 Calcium 10.2 mg/dL 8.6-10.3 Total Protein 7.5 g/dL 6.4-8.9 Albumin 4.5 g/dL 3.2-5.2 Globulin 3.0 g/dL 2-4 Albumin/Globulin Ratio 1.5 1-3 Total Bilirubin 0.40 mg/dL 0.2-1.0 Alkaline Phosphatase 78 U/L 34-104 Alt 28 U/L 7-52 Ast 22 U/L 13-39 Egfr Non- 72.2 >60 Egfr 92.9 >60 5 Laboratory test finding 05/25/2017 Partial Thrombo Time 32.4 seconds 26.0 -36.3 PTT Inr/Protime 05/25/2017 Inr 0.84 0.77-1.02 Urinalysis Profile 05/25/2017 Urine Color Suzanna Urine Appearance Cloudy Urine Specific [place] 1.024 1.010-1.030 Urine pH 5.0 5-9 Urine Urobilinogen Negative Negative Urine Ketones Negative Negative Urine Protein Negative Negative Urine Leukocytes Trace Negative Urine Blood Negative Negative Urine Nitrite Negative Negative Urine Bilirubin Negative Negative Urine Glucose Negative Negative Urine White Blood Cell Trace(0-5/hpf) Absent Urine Red Blood Cell 2+(6-10/hpf) Absent Urine Bacteria Absent Absent Urine Squamous Epithelial Cell Present Absent CBC With Electronic Diff 09/29/2007 White Blood [...] mmol/L 22-32 Anion Gap 3.0 mmol/L 2-11 6 Glucose 84 mg/dL 70-105 BUN 30 mg/dL High 6-24 Creatinine 1.0 mg/dL 0.5-1.4 One Over Creatinine 1.00 BUN/Creatinine Ratio 30.0 High 8-20 Calcium 9.2 mg/dL 8.1-9.9 7 Total Protein 6.9 GM/DL 6.2-8.1 Albumin 3.9 GM/DL 3.6-5.4 Globulin 3.0 GM/DL 2-4 Albumin/Globulin Ratio 1.3 1-3 Bilirubin Total 0.5 mg/dL 0.4-1.5 Alkaline Phosphatase 69 U/L 30-110 Alt (SGPT) 29 U/L 14-54 Ast (Sgot) 25 U/L 12-42 Lipid Profile (Trig/Chol/HDL) 09/29/2007 Triglyceride 155 mg/dL 40-200 Cholesterol 228 mg/dL High Less Than 200 8 High Density Lipoprotein 49 mg/dL 40-60 9 Cholesterol/HDL Ratio 4.65 AVERAGE High 1-4.44 Low Density Lipoprotein 148 mg/dL High Less Than 100 10 Laboratory test finding 09/29/2007 TSH 0.63 MIU/ML 0.34-5.60 LDL Direct 131 mg/dL High Less Than 100 11 1 Because ethnic data is not always readily available, this report includes an eGFR for both -Americans and non- Americans. The National Kidney Disease Education Program (NKDEP) does not endorse the use of the MDRD equation for patients that are not between the ages of 18 and 70, are , have extremes of body size, muscle mass, or nutritional status, or are non- or non-. According to the National Kidney Foundation, irrespective of diagnosis, the stage of the disease is based on the level of kidney function: Stage Description GFR(mL/min/1.73 m(2)) 1 Kidney damage with normal or decreased GFR 90 2 Kidney damage with mild decrease in GFR 60-89 3 Moderate decrease in GFR 30-59 4 Severe decrease in GFR 15-29 5 Kidney failure <15 (or dialysis) 2 *Ascorbic acid is present which may interfere with detection of blood. 3 Therapeutic target for the treatment of diabetes mellitus patients is <7% HBA1C, and in selective patients <6.0%. Please refer to [place] Diabetes Association diabetic care guidelines for further information. 4 SEE RESULT BELOW Name: SMITHA MARIE : [address]: Soraya Dumont MD Acct: [id number] Unit: [id number] AGE: 62 Location: PAT Re05/25/17 SEX: F Status: REG REF SPEC: [id number] AVNI: 05/25/17-[address]: Soraya Dumont MD REQ: [id number] RECD: 05/25/17 STATUS: COMP OTHR DR: Emma Cuello MD _ SOURCE: URINE SPDESC: ORDERED: Urine Culture Procedure Result Reported Site Urine Culture Final 05/26/17- 1243 ML No Growth (<1,000 CFU/mL) * ML - Main Lab . END OF REPORT DEPARTMENT OF PATHOLOGY, [address] [place] [address] Antony Beauchamp M.D. Director [facility] # [id number] 5 Because ethnic data is not always readily available, this report includes an eGFR for both -Americans and non- Americans. The National Kidney Disease Education Program (NKDEP) does not endorse the use of the MDRD equation for patients that are not between the ages of 18 and 70, are , have extremes of body size, muscle mass, or nutritional status, or are non- or non-. According to the National Kidney Foundation, irrespective of diagnosis, the stage of the disease is based on the level of kidney function: Stage Description GFR(mL/min/1.73 m(2)) 1 Kidney damage with normal or decreased GFR 90 2 Kidney damage with mild decrease in GFR 60-89 3 Moderate decrease in GFR 30-59 4 Severe decrease in GFR 15-29 5 Kidney failure <15 (or dialysis) 6 Anion gap measurement may be of limited value in the presence of any alkalosis, especially in a combined acid base disorder. . 7 Please note change in reference range effective 07 . 8 CHOLESTEROL INTERPRETATION: Desirable: Less than 200 MG/DL Borderline-High Risk: 200-239 MG/DL High-Risk: 240 MG/DL and over 9 HDL INTERPRETATION: Undesirable: High Risk: Less than 40 MG/DL Desirable: Low Risk: Greater than 60 MG/DL 10 LDL INTERPRETATION: Low Risk Optimal Level: LDL Less than 100 MG/DL Near or Above Optimal: LDL 100-129 MG/DL Borderline High Risk: LDL 130-159 MG/DL High Risk: LDL 160-189 MG/DL Very High Risk: LDL Greater than 189 MG/DL 11 LDL INTERPRETATION: Low Risk Optimal Level: LDL Less than 100 MG/DL Near or Above Optimal: LDL 100-129 MG/DL Borderline High Risk: LDL 130-159 MG/DL High Risk: LDL 160-189 MG/DL Very High Risk: LDL Greater than 189 MG/DL Procedures Date CPT Code Description Status 06/04/2017 79867 THR Total Hip Replacement Completed 06/04/2017 28086 THR Total Hip Replacement Completed 06/04/2017 55208 THR Total Hip Replacement Completed 04/10/2017 48552 Inject/Drain Joint/Bursa Major W/O US Completed 01/12/2017 63960 Sleep Study Unattended,HRT Rate,Oxygen Sat,Resp Completed Effort/Airflow 02/18/2011 76780 Xray Knee 3 Views Completed 02/18/2011 19769 Rad Exam; Knee, Ap&L Completed 06/23/2006 Colonoscopy Completed Encounters Type Date Location Provider CPT E/M Dx Office Visit 06/17/2017 10:30a [facility] M.D. 14611 Z47.1 [facility] Z96.641 M25.551 M25.462 M25.562 M17.12 M25.362 Office Visit 04/08/2017 11:15a [facility] Shara Perea, 27707 G47.33 [facility] AGUSTIN RN, PASCUAL-PAOLA E66.09 Z68.36 Office Visit 04/06/2017 9:00a [facility] M.D. 49008 M25.562 [facility] M17.12 M21.062 M25.462 Office Visit 03/30/2017 10:00a [facility] Dum[facility] M.D. 82256 M25.551 [facility] M16.11 Office Visit 01/30/2017 9:15a [facility] Shara Perea 17974 G47.33 Services [facility] AGUSTIN RN, RAILROAD INSPECTOR-PAOLA R51 E66.09 Z68.35 Office Visit 01/29/2017 8:30a [facility] Vitor Rodriguez 02426 G43.719 Services Of [facility] Quarles Office Visit 01/12/2017 11:00[place] [address] R06.83 Sleep [facility] R51 R40.0 R35.1 G89.29 E66.09 Z68.35 Office Visit 12/26/2016 10:00a [facility] Dum[facility] M.D. 34782 M25.561 [facility] M17.11 M25.551 M16.11 Office Visit 03/07/2011 8:30a [facility] GABY Martinez 14816 717.9 Of [facility] Office Visit 02/18/2011 1:00p [facility] GABY Martinez 91784 717.9 Of [facility] Office Visit 11/11/2010 9:00a [facility] Be Harper M.D. 77624 726.2 Of [facility] Office Visit 10/14/2010 9:30a [facility] Be Harper M.D. 30723 726.2 Of C.[facility] Office Visit 08/05/2010 11:20a DO Not Use Cold Roll Inspector AT [facility], 70766 719.41 [facility] 719.46 Office Visit 02/28/2009 1:45p DO Not Use [employer] Inspector AT [facility], 09610 465.9 [facility] 388.70 Office Visit 11/09/2008 1:30p [facility] AT [facility], 59742 784.0 [facility].D. Office Visit 09/28/2007 2:00p [facility], 41301 702.19 [facility].D 272.2 Office Visit 02/18/2007 9:15a [facility], [address]444 462 [facility] M.D. Office Visit 10/26/2006 2:30p [facility], 87917 307.81 [facility] M.D. Plan of Care Future Appointment(s):09/21/2017 2:00 pm - Soraya Dumont M.D. at [facility]09/10/2017 8:30 am - Baljinder Mayo PA-C at [facility]09/10/2017 8:30 am - HIEU Terrazas at [facility]09/10/2017 8:30 am - Soraya Dumont M.D. at [facility]10/06/2017 2:00 pm - Shara Perea DNP, RN, RAILROAD INSPECTOR-BC at [facility]08/31/2017 - Soraya Dumont M.D.M25.562 Pain in left kneeFollow up:Follow up: 10-14 days gniatlB67.462 Effusion, left kneeM17.12 Unilateral primary osteoarthritis, left knee
--- OUTSIDE RECORDS SUMMARY | 2017-09-10 08:46 | XMS REPORT ---
:1955 External Reference #:[id number] Author Organization [employer] Address [address] [place] [address] Phone [phone] Care Team Providers Name Role Phone Emma Cuello M.D. Primary Care Physician Unavailable Payers Type Date Identification Numbers Payment Provider Subscriber Commercial Policy Number: [id number] [employer] Ppo/Pos/Epo/Nap Smitha Marie PayID: [id number] [address] [place] [address] Problems Date Description Provider Status Onset: Total replacement of hip Active Onset: Total replacement of left knee joint Active Onset: 08/25/2017 Presbyopia Tahmina Christine O.D. Active Onset: 08/25/2017 Regular astigmatism Tahmina Christine O.D. Active Onset: 08/25/2017 Refractive amblyopia Tahmina Christine O.D. 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 ETOH Use Occasionally consumes wine Smoking Patient has never smoked Daily Caffeine Consumes on average 1 soda per day Allergies, Adverse Reactions, Alerts Date Description Reaction Status Severity Comments 08/25/2017 NKDA active Medications Medication Date Status Form Strength Qnty SIG Indications Ordering Provider No Active 08/25/2017 Active Unknown Medications Results Description No Information Procedures Date CPT Code Description Status 07/05/2009 59428 Determination Of Refractive State Completed 07/05/2009 61929 Est Patient Comprehensive Exam Completed 06/16/2007 52578 Determination Of Refractive State Completed 06/16/2007 90413 Est Patient Comprehensive Exam Completed 09/11/2004 89880 Determination Of Refractive State Completed 09/11/2004 33805 Est Patient Comprehensive Exam Completed Plan of Care 08/25/2017 - Tahmina Christine O.D.H53.021 Refractive amblyopia, right eyeComments :Smoking can increase the risk of developing or worsening any eye related disease, as well as affect your overall health. If you are a smoker, we strongly recommend that you quit.If you are not a smoker, we strongly recommend that you do not start.Follow up:2 estjuE79.223 Regular astigmatism, bilateralComments:Astigmatism is a common vision condition that happens when a person's cornea is not symmetrical. Dr. Christine has given you a prescription to correct for this.H52.4 PresbyopiaComments:You have presbyopia. This is when the lens in your eye loses the ability to change focus, and happens as we age. A pair of reading glasses will help you see up close.
--- OUTSIDE RECORDS SUMMARY | 2017-09-10 08:46 | XMS REPORT ---
:1955 External Reference #:[id number] Author Organization [employer] Address [address] [place] [address] [place] [address] Phone [phone] Care Team Providers Name Role Phone Emma Cuello MD Primary Care Physician Unavailable Payers Type Date Identification Numbers Payment Provider Subscriber Commercial Policy Number: [id number] [employer] Smitha Marie Group Number: [id number] [id number] PayID: [id number] [place] [address] Problems Date Description Provider Status Onset: 12/26/2016 Localized, primary Soraya Dumont M.D. Active osteoarthritis Onset: 12/26/2016 Localized, primary Soraya Dumont M.D. Active osteoarthritis of the pelvic region and thigh Onset: 01/29/2017 Chronic intractable migraine Vitor Rodriguez M.D. Active without aura Onset: 01/30/2017 Obstructive sleep apnea syndrome Shara Perea DNP, RN, Active [employer] Onset: 01/30/2017 Body mass index 30+ - obesity Shara Perea DNP, RN, Active [employer] Onset: 01/30/2017 Headache Shara Perea DNP, RN, Active [employer] Onset: 07/15/2017 Meralgia paresthetica of left Soraya [...] Form Strength Qnty SIG Indications Ordering Provider Riboflavin 01/29/ Active Capsules 100mg 120ca 4 by mouth G43.719 [place] 2016 ps each day Robina Rodriguez Multi-Vitamin / Active Tablets 1 PO qd Barken, 0000 MD Kahlil Excedrine / Active prn H/A Other 0000 Physician Practices Calcium / Active Unknown 0000 Percocet 06/06/ Hx Tablets 5-325mg 60tab 1 - 2 tabs Soraya 2018 - s by mouth Robina Dumont 07/14/ [...] 90tab 1 po qd Mariusz Madsen 2007 - s Robina Kramer 2008 Amoxicillin 02/18/ Hx Tablets 500mg 30tab 1 po tid Mariusz Kramer M.D. 2007 Zoloft 10/26/ Hx Tablets 25mg 30tab 1 po qd Mariusz Kramer M.D. 2007 Calcium / Hx Tablets 600mg 1 PO bid Luis 0000 - MD Kahlil [address] / Hx Tablets DR 500mg 1 po bid as Unknown 0000 - needed for 07/14/ pain. 2 2018 week regimen 04/08/17 Medications Administered [...] Test Date Test Result H/L Range Note Urinalysis Profile 05/25/2017 Urine Color Suzanna Urine Appearance Cloudy Urine Specific Lamont 1.024 1.010-1.030 Urine pH 5.0 5-9 Urine Urobilinogen Negative Negative Urine Ketones Negative Negative Urine Protein Negative Negative Urine Leukocytes Trace Negative Urine Blood Negative Negative Urine Nitrite Negative Negative Urine Bilirubin Negative Negative Urine Glucose Negative Negative Urine White Blood Cell Trace(0-5/hpf) Absent Urine Red Blood Cell 2+(6-10/hpf) Absent Urine Bacteria Absent Absent Urine Squamous Epithelial Cell Present Absent Inr/Protime 05/25/2017 Inr 0.84 0.77-1.02 Laboratory test finding 05/25/2017 Partial Thrombo Time 32.4 seconds 26.0 -36.3 PTT Comp Metabolic Panel 05/25/2017 Sodium 136 mmol/L [...] Egfr Non- 72.2 >60 Egfr 92.9 >60 1 CBC Auto Diff 05/25/2017 White Blood Count [...] 0-2 Nucleated Red Blood Cells % 0.1 Type & Screen 05/25/2017 Patient Blood Type O Positive Antibody Screen NEGATIVE Urine Culture And 05/25/2017 Urine Culture SEE RESULT BELOW 2 Sensitivities Laboratory test finding 09/29/2007 TSH 0.63 MIU/ML 0.34-5.60 LDL Direct 131 mg/dL High Less Than 100 3 Lipid Profile (Trig/Chol/HDL) 09/29/2007 Triglyceride 155 mg/dL 40-200 Cholesterol 228 mg/dL High Less Than 200 4 High Density Lipoprotein 49 mg/dL 40-60 5 Cholesterol/HDL Ratio 4.65 AVERAGE High 1-4.44 Low Density Lipoprotein 148 mg/dL High Less Than 100 6 Comp Metabolic Panel 09/29/2007 Sodium 137 mmol/L 135-145 Potassium 4.3 mmol/L 3.5-5.0 Chloride 108 mmol/L 101-111 Co2 (Carbon Dioxide) 26.0 mmol/L 22-32 Anion Gap 3.0 mmol/L 2-11 7 Glucose 84 mg/dL 70-105 BUN 30 mg/dL High 6-24 Creatinine 1.0 mg/dL 0.5-1.4 One Over Creatinine 1.00 BUN/Creatinine Ratio 30.0 High 8-20 Calcium 9.2 mg/dL 8.1-9.9 8 Total Protein 6.9 GM/DL 6.2-8.1 Albumin 3.9 GM/DL 3.6-5.4 Globulin 3.0 GM/DL 2-4 Albumin/Globulin Ratio 1.3 1-3 Bilirubin Total 0.5 mg/dL 0.4-1.5 Alkaline Phosphatase 69 U/L 30-110 Alt (SGPT) 29 U/L 14-54 Ast (Sgot) 25 U/L 12-42 CBC With Electronic Diff 09/29/2007 White Blood [...] Eosinophils 0.1 0-0.6 Abs Basophils 0 0-0.2 1 Because ethnic data is not always [...] 5 Kidney failure <15 (or dialysis) 2 SEE RESULT BELOW Name: SMITHA MARIE : [address]: Soraya Dumont MD Acct: [id number] Unit: [id number] AGE: 62 Location: [facility] Re05/25/17 SEX: F Status: REG REF SPEC: [id number] AVNI: 05/25/17-1209 [facility] DR: Soraya Dumont MD REQ: [id number] RECD: 05/25/17124 STATUS: ADI SONI DR: Emma Cuello MD _ SOURCE: URINE SPDESC: ORDERED: Urine Culture Procedure Result Reported Site Urine Culture Final 05/26/17- 1244 ML No Growth (<1,000 CFU/mL) * ML - Main Lab . END OF REPORT DEPARTMENT OF PATHOLOGY, [address] [place] [address] Antony Beauchamp M.D. Director [facility] # [id number] 3 LDL INTERPRETATION: Low Risk Optimal Level: LDL Less than 100 MG/DL Near or Above Optimal: LDL 100-129 MG/DL Borderline High Risk: LDL 130-159 MG/DL High Risk: LDL 160-189 MG/DL Very High Risk: LDL Greater than 189 MG/DL 4 CHOLESTEROL INTERPRETATION: Desirable: Less than 200 MG/DL Borderline-High Risk: 200-239 MG/DL High-Risk: 240 MG/DL and over 5 HDL INTERPRETATION: Undesirable: High Risk: Less than 40 MG/DL Desirable: Low Risk: Greater than 60 MG/DL 6 LDL INTERPRETATION: Low Risk Optimal Level: LDL Less than 100 MG/DL Near or Above Optimal: LDL 100-129 MG/DL Borderline High Risk: LDL 130-159 MG/DL High Risk: LDL 160-189 MG/DL Very High Risk: LDL Greater than 189 MG/DL 7 Anion gap measurement may be of limited value in the presence of any alkalosis, especially in a combined acid base disorder. . 8 Please note change in reference range effective 07 . Procedures Date CPT Code Description Status 06/04/2017 23576 THR Total Hip Replacement Completed 06/04/201739838 THR Total Hip Replacement Completed 06/04/201723175 THR Total Hip Replacement Completed 04/10/2017 42884 Inject/Drain Joint/Bursa Major W/O US Completed 01/12/2017 87674 Sleep Study Unattended,HRT Rate,Oxygen Sat,Resp Completed Effort/Airflow 02/18/2011 50042 Xray Knee 3 Views Completed 02/18/2011 22951 Rad Exam; Knee, Ap&L Completed 06/23/2006 Colonoscopy Completed Encounters Type Date Location Provider CPT E/M Dx Office Visit 06/17/2017 10:30a [facility] Dumont M.D. 54000 Z47.1 [facility] Z96.641 M25.551 M25.462 M25.562 M17.12 M25.362 Office Visit 04/08/2017 11:15a [facility] Shara Perea 94728 G47.33 Services Of Barbara AGUSTIN RN, [employer] E66.09 Z68.36 Office Visit 04/06/2017 9:00a [facility] Dumont M.D. 07914 M25.562 [facility] M17.12 M21.062 M25.462 Office Visit 03/30/2017 10:00a [facility] Dumont M.D. 09084 M25.551 [facility] M16.11 Office Visit 01/30/2017 9:15a [facility] Shara Perea 87152 G47.33 Services Of [facility] AGUSTIN RN, [employer] R51 E66.09 Z68.35 Office Visit 01/29/2017 8:30a Tata Rodriguez 56463 G43.719 Services Of [facility] Quarles Office Visit 01/12/2017 11:00[place] [address] R06.83 Sleep Services Of [facility] R51 R40.0 R35.1 G89.29 E66.09 Z68.35 Office Visit 12/26/2016 10:00a [facility] Dumont M.D. 73209 M25.561 [facility] M17.11 M25.551 M16.11 Office Visit 03/07/2011 8:30a [facility] GABY Martinez 62511 717.9 Of [facility] Office Visit 02/18/2011 1:00p [facility] GABY Martinez 87323 717.9 Of [facility] Office Visit 11/11/2010 9:00a [facility] Be Harper M.D. 20481 726.2 Of [facility] Office Visit 10/14/2010 9:30a [facility] Be Harper M.D. 84182 726.2 Of [facility] Office Visit 08/05/2010 11:20a DO Not Use [employer] AT [facility], 61333 719.41 [facility].D. 719.46 Office Visit 02/28/2009 1:45p DO Not Use [employer] [facility], 25480 465.9 [facility].D. 388.70 Office Visit 11/09/2008 1:30p [facility], 98073 784.0 [facility] M.D. Office Visit 09/28/2007 2:00p [facility], 68972 702.19 [facility] M.D. 272.2 Office Visit 02/18/2007 9:15a [facility], 726[address] 462 [facility] M.D. Office Visit 10/26/2006 2:30p [facility], 32882 307.81 [facility] M.D. Plan of Care Future Appointment(s):09/21/2017 2:00 pm - Soraya Dumont M.D. at [facility]09/10/2017 8:30 am - Baljinder Mayo PA-C at [facility]09/10/2017 8:30 am - HIEU Terrazas at [facility]09/10/2017 8:30 am - Soraya Tim, M.D. at [facility]/06/2017 2:00 pm - Shara Perea DNP, RN, [employer] at [facility]
[2017-09-10] MEDS ORDERED: ceFAZolin 2 GM PREMIX (*) 2 GM/50 ML BAG IVPB ONE (09:18)
[2017-09-10] MEDS ORDERED: Sodium Citrate/Citric Acid* 15 ML UDC ONE (09:18)
[2017-09-10] MEDS ORDERED: Tranexamic Acid 1,000 MG/10 ML 1,000 MG in NS 0.9% 100 ML* 100 ML IV ONE (10:00)
[2017-09-10] MEDS ORDERED: Bupivacaine 0.5% SDV PF* 30ML VIAL ONE (10:32)
[2017-09-10] MEDS ORDERED: Midazolam* 1 MG/ML 2 ML VIAL (2 MG) ONE ×2 (10:36→11:51)
[2017-09-10] MEDS ORDERED: fentaNYL* 50 MCG/ML 2 ML VIAL (100 MCG VIAL) ONE ×3 (10:36→16:14)
[2017-09-10] MEDS ORDERED: Propofol* 10 MG/ML 20 ML BTL IV PUSH ONE (10:36)
[2017-09-10] MEDS ORDERED: Rocuronium* 10 MG/ML VIAL ONE ×2 (10:45)
[2017-09-10] MEDS ORDERED: HYDROmorphone INJ* 0.5 MG/0.5 ML SYRINGE IV PRN (11:52)
[2017-09-10] MEDS ORDERED: Morphine INJ* 2 MG/ML 1 ML CARPUJECT IV PRN (11:52)
[2017-09-10] MEDS ORDERED: PROCHLORPERAZINE INJ 5 MG/ML 2 ML VIAL IV PRN (11:52)
[2017-09-10] MEDS ORDERED: oxyCODONE TAB* 5 MG TAB PO PRN ×2 (11:52→14:09)
[2017-09-10] MEDS ORDERED: Ondansetron INJ* 2 MG/ML VIAL IV PRN (11:52)
[2017-09-10] MEDS ORDERED: Naloxone* 0.4 MG/ML 1 ML VIAL IV PRN (11:52)
[2017-09-10] MEDS ORDERED: Acetaminophen IV 1GM/100ML * 1,000 MG/100 ML VIAL IVPB ONE (11:52)
[2017-09-10] MEDS ORDERED: Ketorolac INJ* 30 MG/ML 1 ML VIAL ONE (11:53)
[2017-09-10] MEDS ORDERED: Dexamethasone IV* 4 MG/ML 1 ML (4 MG) ONE (11:53)
[2017-09-10] MEDS ORDERED: Famotidine IV* 10 MG/ML 2 ML (20 mg) ONE (12:04)
[2017-09-10] MEDS ORDERED: HYDROmorphone INJ* 0.5 MG/0.5 ML SYRINGE ONE ×3 (12:18→18:04)
[2017-09-10] MEDS ORDERED: Polyethylene Glycol 3350* 17 GM PACKET PO PRN (14:09)
[2017-09-10] MEDS ORDERED: oxyCODONE/Acetamin 5/325 MG* TAB PO PRN (14:09)
[2017-09-10] MEDS ORDERED: Cyclobenzaprine TAB* 10 MG PO PRN (14:09)
[2017-09-10] MEDS ORDERED: Bisacodyl SUPP* 10 MG SUPP PR PRN (14:09)
[2017-09-10] MEDS ORDERED: diPHENhydraMINE IV* 50 MG/ML 1 ml VIAL (BENADRYL) IV PRN (14:09)
[2017-09-10] MEDS ORDERED: Ondansetron ODT TAB* 4 MG PO PRN (14:09)
[2017-09-10] MEDS ORDERED: Morphine VIAL* 4 MG/ML VIAL (1 ml vial) IV PRN (14:09)
[2017-09-10] MEDS ORDERED: Magnesium Hydroxide LIQ* 30 ML UDC PO PRN (14:09)
[2017-09-10] MEDS ORDERED: Ondansetron TAB* 4 MG PO PRN (14:09)
[2017-09-10] MEDS ORDERED: oxyCODONE/Acetamin 5/325 MG* TAB ONE (15:17)
[2017-09-10] MEDS ORDERED: Acetaminophen IV 1GM/100ML * 100 ML ONE (15:22)
[2017-09-10] MEDS: oxyCODONE/Acetamin 5/325 MG* TAB PO PRN ×3 (15:22→21:43)
--- NOTE | 2017-09-10 16:10 | RAD ---
INDICATION: Left total knee replacement COMPARISON: None TECHNIQUE: Portable AP and crosstable lateral imaging was performed. FINDINGS: There is left knee arthroplasty. Both tibial and femoral components appear well seated. There is no overlying cooling jacket. IMPRESSION: POSTOPERATIVE LEFT KNEE ARTHROPLASTY
[2017-09-10] MEDS: fentaNYL* 50 MCG/ML 2 ML VIAL (100 MCG VIAL) IV PRN ×2 (16:15→16:43)
[2017-09-10] MEDS ORDERED: hydrALAZINE IV* 20 MG/ML VIAL ONE (16:21)
[2017-09-10] MEDS ORDERED: Labetalol IV* 5 MG/ML 20 ML VIAL ONE (17:33)
[2017-09-10] MEDS ORDERED: PROCHLORPERAZINE INJ 5 MG/ML 2 ML VIAL ONE (19:57)
[2017-09-10] MEDS ORDERED: Warfarin TAB(*) 6 MG PO ONE (21:00)
[2017-09-10] MEDS: Magnesium Hydroxide LIQ* 30 ML UDC PO SCH (21:43)
[2017-09-10] MEDS: Docusate CAP* 100 MG PO SCH (21:43)
[2017-09-10] MEDS: ceFAZolin 1 GM in Dextrose (*) 1 GM/50 ML BAG IVPB SCH (21:57)
[2017-09-11] MEDS: Ondansetron INJ* 2 MG/ML VIAL IV PRN ×2 (01:35→09:53)
[2017-09-11] MEDS: Acetaminophen TAB* 325 MG PO PRN ×2 (02:02→06:04)
[2017-09-11] MEDS: ceFAZolin 1 GM in Dextrose (*) 1 GM/50 ML BAG IVPB SCH ×2 (05:48→14:30)
[2017-09-11 06:16] LABS: INR 0.96 (0.77-1.02)
[2017-09-11 06:17] LABS: Hematocrit 39 % (35-47); Mean Platelet Volume 7.3 um3 (7.4-10.4); Platelet Count 254 10^3/ul (150-450)
[2017-09-11 06:32] LABS: EGFR Non-African American 71.2 (>60)
[2017-09-11] MEDS ORDERED: Scopolamine 1.5 mg* PATCH TRANSDERM SCH (07:30)
--- NOTE | 2017-09-11 09:04 | PN ---
Progress Note - Progress Note Date of Service: 09/11/17 SOAP: Subjective: Ms. Marie is a 62 y/o female PO day #1 S/P L TKA with Dr. Dumont on 09/10/17. BP elevated overnight, hyperemesis this morning. No additional episodes since addition of Scopolamine patch, able to keep down Coke. Has not voided since caldwell d/c this morning. Resting comfortably in chair. Patient seen again in afternoon, patient has voided and reports decreased N/V. Denies CP, SOB, fevers, chills. Objective: Vital Signs Temp 97.7 F 09/11/17 11:27 Pulse 75 09/11/17 11:27 Resp 16 09/11/17 14:27 BP 137/61 09/11/17 11:27 Pulse Ox 97 09/11/17 11:27 Intake & Output 09/10/17 09/11/17 09/11/17 18:59 06:59 18:59 Intake Total 2850 505 1216 Output Total 725 750 0 Balance 2125 -245 1216 Weight 202 lb 3.2 oz Intake: IV Fluids 2650 400 976 CEFAZOLIN 2GM IV 50 LR 2600 400 976 IVPB 55 ABX - CEFAZOLIN 55 Oral 200 50 240 Output: Urine 0 [place] 725 750 Laboratory Results - last 24 hr 09/11/17 09/11/17 09/11/17 05:58 05:58 05:58 Hgb 13.0 Hct 39 Plt Count 254 MPV 7.3 L INR (Anticoag Therapy) 0.96 Sodium 132 L Potassium 4.2 Chloride 98 L Carbon Dioxide 27 Anion Gap 7 BUN 22 Creatinine 0.81 Est GFR ( Amer) 86.1 Est GFR (Non-Af Amer) 71.2 BUN/Creatinine Ratio 27.2 H Glucose 165 H Calcium 9.0 Urine Color Urine Appearance Urine pH Ur Specific Wadley Urine Protein Urine Ketones Urine Blood Urine Nitrate Urine Bilirubin Urine Urobilinogen Ur Leukocyte Esterase Urine WBC (Auto) Urine RBC (Auto) Ur Squamous Epith Cells Urine Bacteria Urine Glucose Urine Ascorbic Acid 09/11/17 14:30 Hgb Hct Plt Count MPV INR (Anticoag Therapy) Sodium Potassium Chloride Carbon Dioxide Anion Gap BUN Creatinine Est GFR ( Amer) Est GFR (Non-Af Amer) BUN/Creatinine Ratio Glucose Calcium Urine Color Yellow Urine Appearance Cloudy Urine pH 6.0 Ur Specific Wadley 1.020 Urine Protein Negative Urine Ketones Trace A Urine Blood 1+ A Urine Nitrate Negative Urine Bilirubin Negative Urine Urobilinogen Negative Ur Leukocyte Esterase Trace A Urine WBC (Auto) Trace(0-5/hpf) Urine RBC (Auto) 3+(>10/hpf) A Ur Squamous Epith Cells Present A Urine Bacteria Absent Urine Glucose 1+(50 mg/dl) A Urine Ascorbic Acid * A Assessment: Ms. Marie is a 62 y/o female PO day #1 S/P L TKA with Dr. Dumont on 09/10/17. Now with nausea and vomiting. Plan: - Scopolamine patch for emesis. Improving. Continue to monitor. - UA has trace leukocyte esterase but no bacteria and signs of contamination. Symptoms improving, will wait on urine culture. - Continue PT/OT - Continue lovenox, Coumadin 8 mg tonight - Plan d/c home when stable
[2017-09-11] MEDS: Magnesium Hydroxide LIQ* 30 ML UDC PO SCH ×2 (11:32→22:33)
[2017-09-11] MEDS: Docusate CAP* 100 MG PO SCH ×2 (11:32→22:33)
[2017-09-11] MEDS: Enoxaparin(*) 30 MG/0.3 ML SYR SUBCUT SCH (12:06)
--- NOTE | 2017-09-11 12:52 | OP ---
OPERATIVE REPORT: DATE OF OPERATION: 09/10/17 DATE OF : [birth year] SURGEON: Soraya Dumont MD CASE SEALER: HIEU Reid Ms. did help throughout the procedure with preparation of the leg, wound retraction, manipul ation of the knee and wound closure. ANESTHESIOLOGIST: Dr. Chaney. ANESTHESIA: General. PRE-OP DIAGNOSIS: Severe end-stage degenerative osteoarthritis of the left knee joint with valgus de formity. POST-OP DIAGNOSIS: Severe end-stage degenerative osteoarthritis of the left knee joint with valgus d eformity. OPERATIVE PROCEDURE: Left total knee arthroplasty. TOURNIQUET TIME: 51 minutes. COMPLICATIONS: None. ESTIMATED BLOOD LOSS: 300 cc. SPECIMEN: Bone and cartilage from the left knee joint sent to pathology. HARDWARE USED: This is Sullivan and Nephew cemented total knee arthroplasty hardware. For the femur, an Oxinium left size 4 narrow posterior stabilized femoral component. For the tibia, a Tyesha II size 3 left tibial base plate. For the insert, a 9-mm posterior stabilized articular insert size 3-4 and for the patella, a 32-mm 3-peg all poly patella with 7.5 thickness. BRIEF HISTORY/INDICATIONS: Ms. Marie is a 62-year-old female with years of increasingly severe left knee pain and valgus deformity. Her radiographs showed advanced arthritis with [id number] contact. She failed conservative treatment with anti-inflammatories, pain medication, intra-articular inject ions and physical therapy. Due to continued pain and decreased quality of life, she elected to under go left total knee arthroplasty. Informed consent was obtained from the patient. She understood the risks of the surgery included, but were not limited to bleeding, infection, damage to nearby structu res, continued pain, need for further surgery, intraoperative fracture, nerve palsy, hardware failure or loosening, knee stiffness, loss of motion, stroke, heart attack, blood clot and . She wishe d to proceed. INTRAOPERATIVE FINDINGS: Intraoperatively, the patient was noted to have 12 degrees valgus deformity at the start of the case. This was corrected to anatomic 5 degrees or less of valgus deformity. Sh gilbert was noted to have full-thickness loss of cartilage with extensive osteophyte formation in the later al and patellofemoral compartment. DESCRIPTION OF PROCEDURE: Ms. Marie was identified in the preanesthesia unit. Her left lower extrem ity was marked as the correct operative site. Informed consent was signed and placed in the chart. The patient was taken to the operating room and placed under general anesthesia. A Heart catheter wa s placed. Tourniquet was placed on the left side. Left lower extremity was prepped and draped in th e usual sterile fashion. Preop time-out was made to correctly identify the patient's side and site. Appropriate perioperative antibiotics were given within 1 hour of incision. A 12-cm midline incision was made with a #10 blade and carried down to the extensor mechanism. A new #10-blade was used to make a standard medial parapatellar arthrotomy. The patella was subluxed late rally. Electrocautery was used to subperiosteally elevate soft tissue off the superomedial tibia to the mid sagittal plane. The knee was flexed up. The anterior horn of the lateral meniscus and ACL w ere sharply released. A drill was used to enter the distal femur. Intramedullary distal femoral cut ting guide was pinned on the distal femur. Oscillating saw was used to make a distal femoral cut. N ext, the external rotation guide was pinned on the distal femur. Distal femur was sized to a size 4. Size 4 multi-cutting jig was pinned on the distal femur. Oscillating saw was used to make the appr opriate 4 chamfer cuts. The PCL was completely released and the tibia was subluxed anteriorly. Extramedullary tibial cutting guide was pinned on the proximal tibia. Oscillating saw was used to ma ke the proximal tibial cut perpendicular to the mechanical axis of the tibia. The bone was carefully removed. The knee was brought out into full extension. The knee had good placement of the spacer b lock in full extension. Medial and lateral ligaments were well balanced. Flexion and extension gap w as well balanced. The knee was flexed up. Lamina geospatial technologist was placed both medially and laterally. Any remaining meniscus was carefully removed using electrocautery. Posterior osteophytes were removed using a curved osteotome. Tibial tray and drop chilo were placed to once again confirm the satisfacto ry tibial cut. A size 4 narrow left femoral trial was impacted on to the distal femur. This trial had excellent fit . The box for the posterior stabilized implant was prepared using a reamer and box cut osteotome. A size 3 tibial tray trial with a 9 mm insert trial was placed and the knee was brought out to a range of motion. There was full extension to 130 degrees of flexion with satisfactory patellofemoral trac jeison. The patella was everted. The 7 mm of patellar bone and cartilage was carefully removed using an oscillating saw. Patella was sized to a size 32. Three peg holes were drilled through the size 3 2 guide. A 32 trial patella was placed and the knee was taken through a range of motion. There was satisfactory patellofemoral tracking. Next, all trials were carefully removed. The tibia was subluxe d anteriorly and sized to a size 3. Proximal tibia was prepared using a size 3 keel punch. All bony cut surfaces were copiously irrigated with sterile saline and dried. Final implants were noah ented into place starting with the tibia followed by the femur and last the patella. A 9-mm insert t rial was placed and the knee was brought out into full extension. The tourniquet was turned down at 51 minutes. Electrocautery was used to obtain meticulous hemostasis. The knee was copiously irrigate d with sterile saline. Once the cement had fully cured, the insert trial was removed. Any excess ce ment was removed from around the capsule and hardware. Final implant chosen was a 9-mm posterior stab ilized articular insert. This was locked into position on the tibial tray. Stability of the insert was checked and rechecked and noted to be stable. The knee was once again copiously irrigated with s terile saline. The extensor mechanism was closed using interrupted #1 Vicryl. The rest of the incisi on was closed in a layered fashion using 0 and 2-0 Vicryl. Skin was closed using running 3-0 nylon timmons ture. Sterile Xeroform, 4x4's and Webril were used to cover the incision. David wrap and cold pack we re placed over this. The patient's anesthesia was reversed without difficulty. She was taken to the PACU in stable condition. Intended weightbearing will be weightbearing as tolerated. Intended DVT p rophylaxis will be Coumadin with a Lovenox bridge. [id number]/[facility] #: [id number]
[2017-09-11 14:44] LABS: Urine Appearance Cloudy; Urine Blood 1+ (Negative); Urine Color Yellow; Urine Ketones Trace (Negative); Urine Protein Negative (Negative); Urine Urobilinogen Negative (Negative)
[2017-09-11] MEDS ORDERED: Warfarin TAB(*) 4 MG PO ONE (17:00)
[2017-09-11] MEDS: oxyCODONE/Acetamin 5/325 MG* TAB PO PRN (19:44)
[2017-09-11] MEDS: Aspirin EC TAB* 325 MG PO SCH (22:33)
[2017-09-12] MEDS: oxyCODONE/Acetamin 5/325 MG* TAB PO PRN ×4 (00:11→13:52)
[2017-09-12 06:03] LABS: Hematocrit 36 % (35-47); Hemoglobin 11.7 g/dl (12.0-16.0); Mean Platelet Volume 7.4 um3 (7.4-10.4); Platelet Count 263 10^3/ul (150-450)
--- NOTE | 2017-09-12 08:51 | PN ---
Progress Note - Progress Note Date of Service: 09/12/17 SOAP: Subjective: POD #2 Left TKA, doing well. Pain controlled. Denies CP/SOB, n/v, f/c or calf pain Objective: Vitals: Temp Pulse Resp BP Pulse Ox 98.3 F 77 16 146/81 97 09/12/17 07:29 09/12/17 07:29 09/12/17 07:29 09/12/17 07:29 09/12/17 07:29 Gen: A&Ox3, NAD at rest LLE: Incision C/D/I, mild eccymosis, calf soft, NT. +f/e at ankles, MTPs. N/V intact Labs: Laboratory Results - last 24 hr 09/11/18 09/12/17 14:30 05:17 Hgb 11.7 L Hct 36 Plt Count 263 MPV 7.4 Urine Color Yellow Urine Appearance Cloudy Urine pH 6.0 Ur Specific Deweese 1.020 Urine Protein Negative Urine Ketones Trace A Urine Blood 1+ A Urine Nitrate Negative Urine Bilirubin Negative Urine Urobilinogen Negative Ur Leukocyte Esterase Trace A Urine WBC (Auto) Trace(0-5/hpf) Urine RBC (Auto) 3+(>10/hpf) A Ur Squamous Epith Cells Present A Urine Bacteria Absent Urine Glucose 1+(50 mg/dl) A Urine Ascorbic Acid * A Assessment: POD #2 Left TKA Plan: D/C home today ASA 325mg BID for DVT ppx VNS for PT and wound checks F/u with Dr. Dumont 10-14 days
[2017-09-12] MEDS: Aspirin EC TAB* 325 MG PO SCH (09:50)
[2017-09-12] MEDS: Magnesium Hydroxide LIQ* 30 ML UDC PO SCH (09:50)
[2017-09-12] MEDS: Docusate CAP* 100 MG PO SCH (09:51)
--- NOTE | 2017-09-12 11:02 | DS ---
AMENDED REPORT NOW INCLUDES COSIGNER DESIGNATION - ESIGNED BEFORE ADJUSTMENT DISCHARGE SUMMARY: DATE OF ADMISSION: 09/10/17 DATE OF DISCHARGE: 09/12/17 ATTENDING PROVIDER: Soraya Dumont MD * (DICTATED BY HIEU RICH) ADMITTING DIAGNOSIS: Severe end-stage osteoarthritis of the left knee. DISCHARGE DIAGNOSIS: Severe end-stage osteoarthritis of the left knee, status post left total knee arthroplasty. SECONDARY DIAGNOSIS: Sleep apnea. HISTORY OF PRESENT ILLNESS: Ms. Marie is a 62-year-old female who has had continued complaints of left knee pain. She failed conservative management and elected to proceed with a left total knee arthroplasty. HOSPITAL COURSE: On 09/10/17, the [facility] and underwent a successful left total knee arthroplasty. She recovered briefly in the post anesthesia care unit and was transferred to the short stay surgical unit in stable condition. On postop day #1, the patient had an H and H of 13 and 39, INR was 0.96. She was able to ambulate a short distance with physical therapy. Her Heart catheter was removed and she had no difficulty with voiding. On postop day #2, the patient's pain was well controlled with oral pain medication, H and H 11.7 and 36. No INR was drawn as she is using aspirin for DVT prophylaxis. She was able to participate better with physical therapy and was found stable for discharge home. Throughout her hospital stay her vital signs were stable, she remained afebrile and normotensive. DISCHARGE MEDICATIONS: 1. The patient will use Percocet 5/325 mg 1 to 2 tablets p.o. q.4 to 6 hours p.r.n. pain. 2. Colace 100 mg p.o. b.i.d. 3. Aspirin 325 mg b.i.d. 4. Cyclobenzaprine 5 mg p.o. t.i.d. p.r.n. spasms. 5. She will resume her home medications of calcium carbonate/vitamin D3 supplement 1 tab p.o. b.i.d. 6. Multivitamin daily. 7. Riboflavin 400 mg daily. DISCHARGE INSTRUCTIONS: The patient is weightbearing as tolerated with the use of the rolling walker. She will have home visiting nurse services for wound checks and physical therapy. She is to leave her dressing on until postop day # 3, at that time she may shower normally and wash her incision with soap and water. She will apply dry dressing as needed. She was understanding not to submerge her incision in a bathtub, hot tub or swimming pool. She will call the office with any problems or concerns. She will go directly to the emergency room with any chest pain, shortness of breath, fever greater than 101.5, calf pain or swelling. She will follow up in the office 10 to [address] Dumont. HIEU RICH [id number]/[facility] #: [id number] ROS[place]
[2017-09-12] MEDS: Enoxaparin(*) 30 MG/0.3 ML SYR SUBCUT SCH (12:56)
[2017-09-12 15:23] VITALS: BP 121/49
== END 2017-09-12 14:30 | disposition home health service (06) | DRG 470 ==
LOC: AA 08:40 → SSU 14:09
PROVIDERS: ADMIT Orthopaedic Surgery Adult Reconstructive Orthopaedic Surgery; ATTEND Orthopaedic Surgery Adult Reconstructive Orthopaedic Surgery
PROC: 0SRD069 Replacement of Left Knee Joint with Oxidized Zirconium on Polyethylene Synthetic Substitute, Cemented, Open Approach (ICD-10-PCS; principal; 2017-09-10 11:15)
DX: M17.0 Bilateral primary osteoarthritis of knee (principal); R51 Headache; Z96.641 Presence of right artificial hip joint; M21.062 Valgus deformity, not elsewhere classified, left knee; M25.462 Effusion, left knee; G47.33 Obstructive sleep apnea (adult) (pediatric); E66.09 Other obesity due to excess calories; M25.762 Osteophyte, left knee; G57.12 Meralgia paresthetica, left lower limb; Z68.36 Body mass index [BMI] 36.0-36.9, adult; Z79.82 Long term (current) use of aspirin; R11.2 Nausea with vomiting, unspecified; R03.0 Elevated blood-pressure reading, without diagnosis of hypertension
CPT/HCPCS: 36415; 80048; 81003; 81015; 85014; 85018; 85049; 85610; 87086; A9270-GY; C1776; J0360; J0690; J0780; J1100; J1170; J1650; J1885; J2250; J2405; J2704; J3010

== ENCOUNTER 2018-09-05 20:53 | Emergency (ER) | payer MEDICARE ==
[2018-09-05 21:01] VITALS: BP 173/93
[2018-09-05] MEDS ORDERED: Tetan/Diph/Pertus SYR(Tdap)* 0.5 ML SYR(BOOSTRIX) use SYR IM ONE (22:36)
--- NOTE | 2018-09-05 22:55 | UC ---
Lower Extremity/Ankle HPI - HPI Summary HPI Summary: PATIENT [place] TODAY LANDING ON HER RIGHT KNEE AND TWISTING HER RIGHT ANKLE. HAS A HISTORY OF A DISTAL RIGHT TIBIAL FRACTURE ABOUT 30 YEARS AGO AND HAS A SYEDA IN PLACE. UNKNOWN DATE OF LAST TETANUS. - History of Current Complaint Chief Complaint: UCLowerExtremity Stated Complaint: R ANKLE INJURY Time Seen by Provider: 09/05/18 21:39 Hx Obtained From: Patient Onset/Duration: Sudden Onset, Lasting Hours, Still Present Severity Initially: Moderate Severity Currently: Moderate Pain Intensity: 8 Pain Scale Used: 0-10 Numeric Aggravating Factor(s): Standing, Ambulation Alleviating Factor(s): Rest, Elevation Able to Bear Weight: Yes - Allergies/Home Medications Allergies/Adverse Reactions: Allergies Allergy/AdvReac Type Severity Reaction Status Date / Time No Known Allergies Allergy Verified 09/05/18 21:01 PMH/Surg Hx/FS Hx/Imm Hx Previously Healthy: Yes - Surgical History Surgical History: Yes Surgery Procedure, Year, and Place: 1991 ORIF RIGHT TIBIA WITH SYEDA AND SCREWS [place]. 2005 LEFT HIP RESURFACING [facility]. 2018 THR- right side. 2018 TKR left side - Family History Known Family History: Positive: Non-Contributory - Social History Alcohol Use: Occasionally Alcohol Amount: occassional glass of wine Substance Use Type: None Smoking Status (MU): Never Smoked Tobacco - Immunization History Most Recent Influenza Vaccination: 12/30 Most Recent Pneumonia Vaccination: NONE Review of Systems All Other Systems Reviewed And Are Negative: Yes Constitutional: Positive: Negative Skin: Positive: Other - ABRASION RIGHT KNEE Respiratory: Positive: Negative Cardiovascular: Positive: Negative Gastrointestinal: Positive: Negative Musculoskeletal: Positive: Arthralgia, Decreased ROM, Edema Physical Exam Triage Information Reviewed: Yes Appearance: Well-Appearing, No Pain Distress, Well-Nourished Vital Signs: Initial Vital Signs Temp 99.2 F 09/05/18 20:57 Pulse 83 09/05/18 20:57 Resp 16 09/05/18 20:57 BP 173/93 09/05/18 20:57 Pulse Ox 98 09/05/18 20:57 Vital Signs Reviewed: Yes Eyes: Positive: Conjunctiva Clear ENT: Positive: Hearing grossly normal Neck: Positive: Supple Respiratory: Positive: No respiratory distress, No accessory muscle use Cardiovascular: Positive: Pulses Normal Abdomen Description: Positive: Soft Musculoskeletal: Positive: ROM Limited @, Edema @ - RIGHT ANKLE, Other: - TENDER RIGHT ANKLE LATERAL MALLEOLUS Neurological: Positive: Alert Psychological: Positive: Age Appropriate Behavior Skin: Positive: Other - ABRASION ACROSS RIGHT ANTERIOR KNEE Diagnostics - Radiology RIGHT KNEE XRAYS Radiology Interpretation Completed By: ED Physician Summary of Radiographic Findings: HARDWARE IN PLACE. ARTHRITIS. NO ACUTE BONY INJURY RIGHT ANKLE XRAYS Radiology Interpretation Completed By: ED Physician Summary of Radiographic Findings: HARDWARE IN PLACE. NO ACUTE BONY INJURY Lower Extremity Course/Dx - Course Course Of Treatment: RIGHT KNEE AND ANKLE X-RAYS SHOW HARDWARE IN PLACE AND ARTHRITIS OF THE RIGHT KNEE BUT NO ACUTE BONY INJURY ON MY INITIAL INTERPRETATION. OFFICIAL RADIOLOGY READ PENDING. KNEE ABRASION CLEANSED AND COVERED WITH ANTIBIOTIC OINTMENT AND A NONSTICK BANDAGE. TDAP BOOSTED. RIGHT ANKLE SPRAIN TREATED WITH ASHVIN WRAP AND GEL SPLINT. PATIENT HAS CRUTCHES AT HOME SHE CAN USE TO ASSIST WITH MOBILITY. ADVISED PATIENT THAT ON ONE VIEW OF HER RIGHT KNEE X-RAY THE HARDWARE APPEARS TO BE PROTRUDING THROUGH THE BONY SURFACE HOWEVER THIS MAY BE DUE TO THE ANGLE OF THE IMAGE. AGAIN WILL WAIT FOR OFFICIAL RADIOLOGY READ. PATIENT WILL FOLLOW UP WITH HER ORTHOPEDIC SURGEON. - Differential Dx/Diagnosis Provider Diagnosis: Right ankle sprain, Abrasion of right knee Discharge - Sign-Out/Discharge Documenting (check all that apply): Patient Departure All imaging exams completed and their final reports reviewed: No - Discharge Plan Condition: Stable Disposition: HOME Patient Education Materials: Ankle Sprain (ED), Abrasion (ED) Referrals: Soraya Dumont MD [Medical Doctor] - If Needed Emma Cuello MD [Primary Care Provider] - If Needed Additional Instructions: XRAY TODAY SHOWS YOUR HARDWARE IN PLACE BUT NO ACUTE BONY INJURY ON MY INITIAL INTERPRETATION. WE WILL CALL YOU TOMORROW IF THE RADIOLOGY READ DIFFERS. YOUR SYMPTOMS SHOULD IMPROVE SIGNIFICANTLY OVER THE NEXT 1-2 WEEKS. IF YOU DO NOT IMPROVE EXPECTED FOLLOW-UP WITH YOUR PCP OR ORTHO. YOU MAY BENEFIT FROM REPEAT IMAGING AT THAT TIME. OTC IBUPROFEN OR ALEVE NEEDED FOR DISCOMFORT. REST, ICE, COMPRESS, ELEVATE. ASHVIN WRAP AND GEL SPLINT NEEDED FOR SYMPTOM RELIEF. BE SURE TO GO THROUGH SLOW RANGE OF MOTION AND STRETCHING EXERCISES DAILY YOU ARE ABLE TO PREVENT STIFFENING UP AND MAKING THE DISCOMFORT WORSE. KEEP YOUR ABRASION COVERED WITH ANTIBIOTIC OINTMENT AND A NONSTICK BANDAGE. SEEK FOLLOW-UP IF YOU DEVELOP SPREADING REDNESS OF THE SKIN, PURULENT DRAINAGE, INCREASED PAIN, FEVER OR ANY OTHER CONCERNING SYMPTOMS. TETANUS IMMUNIZATION GIVEN (TDAP): You have been given an immunization against tetanus. Please record this in your records. In general, a booster is needed only once every 10 years. The tetanus shot protects against tetanus or "lockjaw," which is a complication of certain wound infections (the tetanus shot cannot protect against the actual infection). The immunization site may become warm and red due to local reaction. If this occurs, apply warm compresses and take aspirin or ibuprofen to reduce inflammation and discomfort. Return for evaluation if the reaction becomes severe. - Billing Disposition and Condition Condition: STABLE Disposition: Home
--- NOTE | 2018-09-06 08:07 | UC ---
- Progress Note Progress Note: Final x-ray report reviewed. Order Information: ANKLE RIGHT 3+VWS Accession Number: [id number] CPT: 65001 INDICATION: Right ankle injury. There are no prior studies available for comparison. TECHNIQUE: 3 views of the right ankle were obtained. FINDINGS: There is diffuse soft tissue swelling. The distal portion of an intramedullary chilo is visualized within the tibia. There is deformity of the distal tibial diaphysis most consistent with an old healed fracture. The bones are in normal alignment. There appear to be small avulsion fracture fragments arising from the tip of the medial malleolus and the medial aspect of the navicular bone. The results of this exam were called to the urgent care nurse Amelia. IMPRESSION: 1. DIFFUSE SOFT TISSUE SWELLING. 2. SMALL AVULSION FRACTURE FRAGMENTS ARISING FROM THE TIP OF THE MEDIAL MALLEOLUS AND MEDIAL NAVICULAR BONE. 3. POSTSURGICAL CHANGES. Order Information: KNEE RIGHT 4+ VWS Accession Number: [id number] CPT: 35448 Indication: Right knee pain. 4 views of the right knee demonstrates joint space narrowing in the medial compartment. Osteophyte formation is noted. No fracture is identified. Intramedullary chilo in the tibia. IMPRESSION: Degenerative changes medial compartment right knee. The avulsion fracture was not noted in the initial reading of the x-ray however plan of care remains unchanged. Will have nursing inform patient of finding and encourage follow up with orthopedic surgery for re-evaluation. Course/Dx - Diagnoses Provider Diagnoses: Right ankle sprain, Abrasion of right knee Discharge - Sign-Out/Discharge Documenting (check all that apply): Post-Discharge Follow Up All imaging exams completed and their final reports reviewed: Yes - Discharge Plan Condition: Stable Disposition: HOME Patient Education Materials: Ankle Sprain (ED), Abrasion (ED) Referrals: Soraya Dumont MD [Medical Doctor] - If Needed Emma Cuello MD [Primary Care Provider] - If Needed Additional Instructions: XRAY TODAY SHOWS YOUR HARDWARE IN PLACE BUT NO ACUTE BONY INJURY ON MY INITIAL INTERPRETATION. WE WILL CALL YOU TOMORROW IF THE RADIOLOGY READ DIFFERS. YOUR SYMPTOMS SHOULD IMPROVE SIGNIFICANTLY OVER THE NEXT 1-2 WEEKS. IF YOU DO NOT IMPROVE EXPECTED FOLLOW-UP WITH YOUR PCP OR ORTHO. YOU MAY BENEFIT FROM REPEAT IMAGING AT THAT TIME. OTC IBUPROFEN OR ALEVE NEEDED FOR DISCOMFORT. REST, ICE, COMPRESS, ELEVATE. ASHVIN WRAP AND GEL SPLINT NEEDED FOR SYMPTOM RELIEF. BE SURE TO GO THROUGH SLOW RANGE OF MOTION AND STRETCHING EXERCISES DAILY YOU ARE ABLE TO PREVENT STIFFENING UP AND MAKING THE DISCOMFORT WORSE. KEEP YOUR ABRASION COVERED WITH ANTIBIOTIC OINTMENT AND A NONSTICK BANDAGE. SEEK FOLLOW-UP IF YOU DEVELOP SPREADING REDNESS OF THE SKIN, PURULENT DRAINAGE, INCREASED PAIN, FEVER OR ANY OTHER CONCERNING SYMPTOMS. TETANUS IMMUNIZATION GIVEN (TDAP): You have been given an immunization against tetanus. Please record this in your records. In general, a booster is needed only once every 10 years. The tetanus shot protects against tetanus or "lockjaw," which is a complication of certain wound infections (the tetanus shot cannot protect against the actual infection). The immunization site may become warm and red due to local reaction. If this occurs, apply warm compresses and take aspirin or ibuprofen to reduce inflammation and discomfort. Return for evaluation if the reaction becomes severe. - Billing Disposition and Condition Condition: STABLE Disposition: Home
== END 2018-09-05 23:00 | disposition home or self-care (01) ==
LOC: UCEAST 20:53
DX: S93.401A Sprain of unspecified ligament of right ankle, initial encounter (principal); S80.211A Abrasion, right knee, initial encounter; W18.40XA Slipping, tripping and stumbling without falling, unspecified, initial encounter; Y93.89 Activity, other specified; Y92.830 Public park as the place of occurrence of the external cause
CPT/HCPCS: 90715; 99213; G0463

== ENCOUNTER 2019-05-02 14:41 | Emergency (ER) | payer MEDICARE ==
--- NOTE | 2019-05-02 15:02 | ED ---
Throat Pain/Nasal Congestion - HPI Summary HPI Summary: The patient is a 63 y/o F arriving via ambulance to [facility] accompanied by friend with a chief complaint of epistaxis of the right nare onset at 1230 today with resolution. She reports a similar episode on 01/15/2019, which she attributed to a pimple-like bump inside of the nose falling off. However, the episode today, which suddenly began while driving, feels different as the pain is located further up the nasal cavity. She denies any dizziness with the nosebleed. Symptoms rated 0/10 in severity as the bleeding is controlled. She notes that she uses a CPAP machine at night for sleep apnea. PMHx: HTN, headaches. Nonsmoker, occasional EtOH, no substance use. Medications reviewed. Allergies noted. - History of Current Complaint Chief Complaint: EDEpistaxis Time Seen by Provider: 05/02/19 14:52 Hx Obtained From: Patient Onset/Duration: Sudden Onset, Lasting Minutes, Resolved Severity: Moderate Associated Signs And Symptoms: Positive: Negative Cough: None Related History: Other (Noted In Comments) - previous episode of epistaxis - Allergies/Home Medications Allergies/Adverse Reactions: Allergies Allergy/AdvReac Type Severity Reaction Status Date / Time No Known Allergies Allergy Verified 05/02/19 14:52 PMH/Surg Hx/FS Hx/Imm Hx Endocrine/Hematology History: Denies: Hx Diabetes Cardiovascular History: Reports: Hx Hypertension Respiratory History: Reports: Hx Sleep Apnea Musculoskeletal History: Reports: Hx Arthritis - OSTEOARTHRITIS BILAT KNEES, Hx Bursitis Denies: Hx Osteoporosis Sensory History: Reports: Hx Contacts or Glasses Denies: Hx Hearing Aid Opthamlomology History: Reports: Hx Contacts or Glasses Neurological History: Reports: Hx Headaches - very infrequent 4-5x's a month - Cancer History Hx Chemotherapy: No Hx Radiation Therapy: No - Surgical History Surgical History: Yes Surgery Procedure, Year, and Place: RIGHT AND LEFT HIP Hx Anesthesia Reactions: No Infectious Disease History: No Infectious Disease History: Denies: Traveled Outside the [place] in Last 30 Days - Family History Known Family History: Positive: Hypertension Negative: Diabetes - Social History Alcohol Use: Occasionally Alcohol Amount: occassional glass of wine Hx Substance Use: No Substance Use Type: Reports: None Hx Tobacco Use: No Smoking Status (MU): Never Smoked Tobacco Review of Systems Positive: Epistaxis - right nare (resolved) Neurological/Mental Status: Other - Negative: dizziness All Other Systems Reviewed And Are Negative: Yes Physical Exam - Summary Physical Exam Summary: General: Well appearing, no distress HEENT: PERRL, Dried blood in the right nare Cardiovascular: Skin is well perfused Pulmonary: No respiratory distress, no tachypnea Abdomen: Non-distended Skin: Warm, pink, dry MSK: No edema Psych: Normal affect Neuro: A&Ox3 Triage Information Reviewed: Yes Vital Signs On Initial Exam: Initial Vitals Temp Pulse Resp BP Pulse Ox 97.8 F 76 16 218/96 96 05/02/19 14:50 05/02/19 14:50 05/02/19 14:50 05/02/19 14:50 05/02/19 14:50 Vital Signs Reviewed: Yes Procedures - Sedation Patient Received Moderate/Deep Sedation with Procedure: No Diagnostics - Vital Signs Vital Signs Temp Pulse Resp BP Pulse Ox 05/02/19 14:50 97.8 F 76 16 218/96 96 - Laboratory Lab Statement: Any lab studies that have been ordered have been reviewed, and results considered in the medical decision making process. Re-Evaluation - Re-Evaluation First Eval Re-Evaluation Time: 15:30 Change: Improved Comment: No futher bleeding. Discussed results and plan for d/c, advised use of compression with clip and nasal saline for recurrent episodes. EENT Course/Dx - Course Course Of Treatment: 63 y/o F p/w epistaxis now resolved. - no trauma, not on blood thinners. Initial BP high, repeat BP 160/100. No hx HTN. -Based on my eval today, no evidence of end organ damage from hypertension. Recommendations for BP management: -The pt likely suffers from essential hypertension. -In the absence of a hypertensive emergency, which the pt does not have, there is no indication to aggressively treat elevated blood pressure, will f/u w PCP. Given afrin spray once here, told to get saline spray. - Diagnoses Provider Diagnoses: Epistaxis, Hypertension Discharge ED - Sign-Out/Discharge Documenting (check all that apply): Patient Departure - Patient will be discharged home. - Discharge Plan Condition: Stable Disposition: HOME Patient Education Materials: Nosebleed (ED) Referrals: Emma Cuello MD [Primary Care Provider] - 3 Days Additional Instructions: You were seen in the emergency department for a nose bleed. If this happens again please apply pressure for 10 minutes, Try saline nasal spray. Your blood pressure was high, please have this checked at your doctor. Please follow up with your primary care doctor in the next 2-3 days and return to the emergency department for worsening or concerning symptoms. It was a pleasure taking care of you today. - Billing Disposition and Condition Condition: STABLE Disposition: Home - Attestation Statements Document Initiated by Marvin: Yes Documenting Scribe: Eun Membreno Provider For Whom Marvin is Documenting (Include Credential): Dr. Sylwia Niño MD Scribe Attestation: I, Eun Membreno, scribed for Dr. Sylwia Niño MD on 05/02/19 at 1543. Scribe Documentation Reviewed: Yes Provider Attestation: The documentation as recorded by the Eun caballero accurately reflects the service I personally performed and the decisions made by me, Dr. Sylwia Niño MD Status of Scribe Document: Viewed
[2019-05-02] MEDS ORDERED: Oxymetazoline 0.05% NASAL SPR* 15 ML BTL RIGHT NARE ONE (15:04)
[2019-05-02 15:35] VITALS: BP 166/104
== END 2019-05-02 15:52 | disposition home or self-care (01) ==
LOC: ED 14:41
DX: I10 Essential (primary) hypertension (principal); R04.0 Epistaxis; R51 Headache
CPT/HCPCS: 99282; A9270-GY